=== PATIENT | male | born 1945 | race Caucasian/White ===

== ENCOUNTER 2017-12-11 07:24 | Inpatient (IN) | payer MEDICARE, OTHER ==
[2017-12-11] MEDS ORDERED: Sodium Chloride 0.9% 1,000 ML IV STA (07:36)
[2017-12-11] MEDS ORDERED: Ondansetron 4 MG/2 ML SDV IVPUSH ONE ×2 (07:36→11:51)
[2017-12-11] MEDS ORDERED: Sodium Chloride 0.9% 10 ML Syringe FLUSH PRN (07:36)
[2017-12-11] MEDS ORDERED: HYDROmorphone 0.5 MG/0.5 ML SYRINGE IVPUSH ONE ×3 (07:37→11:30)
[2017-12-11] MEDS ORDERED: HYDROmorphone 0.5 MG/0.5 ML SYRINGE ONE (07:44)
--- NOTE | 2017-12-11 08:26 | EDM.PDOC ---
ED HPI GENERAL MEDICAL PROBLEM - General Chief Complaint: Abdominal Pain Stated Complaint: POSS DEHYDRATION Time Seen by Provider: 12/11/17 07:30 Source of Information: Reports: Patient, Family History Limitations: Reports: No Limitations - History of Present Illness INITIAL COMMENTS - FREE TEXT/NARRATIVE: The patient presents with generalized abdominal pain, nausea and vomiting. This started yesterday. A couple days ago he was out mowing most of the day in the heat. He tried to hydrate but he is not sure if he kept up with fluid demands. He has no fever, chills, cough, chest pain, shortness of breath, diarrhea or dysuria. He did have a bowel movement today but it was just a small amount. He has a history of HTN and cholecystectomy. 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 Onset: Gradual Duration: Day(s): (Yesterday) Location: Reports: Abdomen Quality: Reports: Sharp Severity: Moderate Improves with: Reports: None Worsens with: Reports: None Associated Symptoms: Reports: Nausea/Vomiting. Denies: Chest Pain, Cough, Fever /Chills, Headaches, Shortness of Breath Abdominal Pain Score (Numeric/FACES): 7 - Related Data Allergies Allergy/AdvReac Type Severity Reaction Status Date / Time neomycin Allergy Swelling Verified 12/11/17 12:22 Penicillins Allergy Swelling Verified 12/11/17 12:22 Home Meds: Home Meds Aspirin [Ecotrin] 81 mg PO DAILY 12/11/17 [History] Enalapril [Vasotec] 20 mg PO DAILY 12/11/17 [History] Omeprazole 20 mg PO DAILY 12/11/17 [History] Sertraline [Zoloft] 100 mg PO DAILY 12/11/17 [History] Past Medical History Cardiovascular History: Reports: Hypertension Musculoskeletal History: Reports: Arthritis Psychiatric History: Reports: Depression - Past Surgical History HEENT Surgical History: Reports: Cataract Surgery GI Surgical History: Reports: Cholecystectomy, Hernia, Inguinal Neurological Surgical History: Reports: Discectomy Social & Family History - Tobacco Use Smoking Status *Q: Never Smoker Second Hand Smoke Exposure: No - Caffeine Use Caffeine Use: Reports: None - Recreational Drug Use Recreational Drug Use: No ED ROS GENERAL - Review of Systems Review Of Systems: See Below Constitutional: Reports: No Symptoms HEENT: Reports: No Symptoms Respiratory: Reports: No Symptoms Cardiovascular: Reports: No Symptoms Endocrine: Reports: No Symptoms GI/Abdominal: Reports: Abdominal Pain, Nausea, Vomiting : Reports: No Symptoms Musculoskeletal: Reports: No Symptoms ED EXAM, GI/ABD - Physical Exam Exam: See Below Exam Limited By: No Limitations General Appearance: Alert, No Apparent Distress Ears: Normal External Exam Nose: Normal Inspection Head: Atraumatic, Normocephalic Neck: Normal Inspection Respiratory/Chest: No Respiratory Distress, Lungs Clear, Normal Breath Sounds Cardiovascular: Regular Rate, Rhythm, No Edema, No Murmur GI/Abdominal Exam: Soft, No Organomegaly, No Mass, Tender (Moderate pain to the mid abdomen), Abnormal Bowel Sounds (diminshed) Back Exam: Normal Inspection Extremities: Normal Inspection Course - Vital Signs Last Recorded V/S: Last Vital Signs Temp 98.0 F 12/11/17 07:35 Pulse 88 12/11/17 07:35 Resp 18 12/11/17 07:35 BP 167/86 H 12/11/17 07:35 Pulse Ox 95 12/11/17 07:35 - Orders/Labs/Meds Orders: Active Orders 24 hr Category Date Time Status Communication Order [RC] STAT Care 12/11/17 12:16 Active EKG Documentation Completion [RC] ASDIRECTED Care 12/11/17 12:20 Active Patient to Empty Bladder [RC] ASDIRECTED Care 12/11/17 12:16 Active Peripheral IV Care [RC] . DIRECTED Care 12/11/17 07:36 Active Verify Patient Consent Obtain [RC] ASDIRECTED Care 12/11/17 12:17 Active Nothing Per Oral Diet [DIET] Diet 12/11/17 Lunch Active Abdomen Pelvis w Cont [CT] Stat Exams 12/11/17 08:23 Taken Abdomen Series w Chest 1V [CR] Stat Exams 12/11/17 07:36 Taken UA W/MICROSCOPIC [URIN] Stat Lab 12/11/17 10:45 Ordered Sodium Chloride 0.9% [Normal Saline] 1,000 ml Med 12/11/17 09:00 Active IV ASDIRECTED Sodium Chloride 0.9% [Normal Saline] 1,000 ml Med 12/11/17 12:30 Ordered IV ASDIRECTED Sodium Chloride 0.9% [Saline Flush] Med 12/11/17 07:36 Active 10 ml FLUSH ASDIRECTED PRN cefOXitin [Mefoxin in Dextrose,Iso-Osm 2 GM/50 ML] 2 gm Med 12/11/17 12:16 Ordered Premix Bag 1 bag IV ONETIME Antiembolic Hose [OM.PC] Routine Oth 12/11/17 12:16 Ordered ED Antiemetic Medication Reflex [OM.PC] Stat Oth 12/11/17 07:36 Ordered Peripheral IV Insertion Adult [OM.PC] Stat Oth 12/11/17 07:36 Ordered Schedule Procedure [COMM] Stat Oth 12/11/17 12:20 Ordered Schedule Procedure [COMM] Urgent Oth 12/11/17 12:16 Ordered Resuscitation Status Routine Resus Stat 12/11/17 12:16 Ordered EKG 12 Lead [EK] Stat Ther 12/11/17 12:20 Ordered Medication Orders Sodium Chloride (Normal Saline) 1,000 mls @ 150 mls/hr IV ASDIRECTED ESTRELLITA Last Admin: 12/11/17 09:05 Dose: 150 mls/hr Cefoxitin Sodium 2 gm/ Premix 50 mls @ 100 mls/hr IV ONETIME ONE Stop: 12/11/17 12:45 Sodium Chloride (Normal Saline) 1,000 mls @ 125 mls/hr IV ASDIRECTED [facility] Sodium Chloride (Saline Flush) 10 ml FLUSH ASDIRECTED PRN PRN Reason: Keep Vein Open Last Admin: 12/11/17 07:57 Dose: 10 ml Labs: Laboratory Tests 12/11/17 12/11/17 12/11/17 Range/Units 08:26 08:26 10:45 WBC 13.80 H (4.23-9.07) K/mm3 RBC 4.48 L (4.63-6.08) M/mm3 Hgb 13.3 L (13.7-17.5) gm/L Hct 40.0 L (40.1-51.0) % MCV 89.3 (79.0-92.2) fl MCH 29.7 (25.7-32.2) pg MCHC 33.3 (32.2-35.5) g/dl RDW Std Deviation 44.8 H (35.1-43.9) fL Plt Count 186 (163-337) K/mm3 MPV 9.6 (9.4-12.3) fl Neut % (Auto) 86.1 H (34.0-67.9) % Lymph % (Auto) 6.5 L (21.8-53.1) % [place] % (Auto) 7.1 (5.3-12.2) % Eos % (Auto) 0 L (0.8-7.0) Baso % (Auto) 0.0 L (0.1-1.2) % Neut # (Auto) 11.88 H (1.78-5.38) K/mm3 Lymph # (Auto) 0.90 L (1.32-3.57) K/mm3 [place] # (Auto) 0.98 H (0.30-0.82) K/mm3 Eos # (Auto) 0.00 L (0.04-0.54) K/mm3 Baso # (Auto) 0.00 L (0.01-0.08) K/mm3 Manual Slide Review Normal smear Sodium 137 (136-145) mEq/L Potassium 4.6 (3.5-5.1) mEq/L Chloride 106 (98-107) mEq/L Carbon Dioxide 21 (21-32) mEq/L Anion Gap 14.6 (5-15) BUN 32 H (7-18) mg/dL Creatinine 1.4 H (0.7-1.3) mg/dL Est Cr Clr Drug Dosing 43.94 mL/min Estimated GFR (MDRD) 50 (>60) mL/min BUN/Creatinine Ratio 22.9 H (14-18) Glucose 174 H (83-115) mg/dL Calcium 9.9 (8.5-10.1) mg/dL Total Bilirubin 0.7 (0.2-1.0) mg/dL AST 27 (15-37) U/L ALT 38 (16-63) U/L Alkaline Phosphatase 100 (46-116) U/L Total Protein 7.6 (6.4-8.2) g/dl Albumin 3.8 (3.4-5.0) g/dl Globulin 3.8 gm/dL Albumin/Globulin Ratio 1.0 (1-2) Lipase 90 (73-393) U/L Urine Color Yellow (Yellow) Urine Appearance Clear (Clear) Urine pH 5.5 (5.0-8.0) Ur Specific [place] 1.025 (1.005-1.030) Urine Protein Negative (Negative) Urine Glucose (UA) Negative (Negative) Urine Ketones Negative (Negative) Urine Occult Blood Negative (Negative) Urine Nitrite Negative (Negative) Urine Bilirubin Negative (Negative) Urine Urobilinogen 0.2 (0.2-1.0) Ur Leukocyte Esterase Negative (Negative) Urine RBC Not seen (0-5) /hpf Urine WBC Not seen (0-5) /hpf Ur Epithelial Cells 0-5 (0-5) /hpf Urine Bacteria Not seen (FEW) /hpf Urine Mucus Not seen (FEW) /hpf Meds: Medications Generic Name Dose Route Start Last Admin Trade Name Freq PRN Reason Stop Dose Admin Sodium Chloride 1,000 mls @ 150 mls/hr 12/11/17 09:00 12/11/17 09:05 Normal Saline IV 150 mls/hr ASDIRECTED ESTRELLITA Administration Cefoxitin Sodium 2 gm/ Premix 50 mls @ 100 mls/hr 12/11/17 12:16 IV 12/11/17 12:45 ONETIME ONE Sodium Chloride 1,000 mls @ 125 mls/hr 12/11/17 12:30 Normal Saline IV ASDIRECTED ESTRELLITA Sodium Chloride 10 ml 12/11/17 07:36 12/11/17 07:57 Saline Flush FLUSH 10 ml ASDIRECTED PRN Administration Keep Vein Open Discontinued Medications Generic Name Dose Route Start Last Admin Trade Name Freq PRN Reason Stop Dose Admin Diatrizoate Meglum/Diatrizoate Sod 90 ml 12/11/17 09:39 12/11/17 10:00 Gastrografin 37% PO 12/11/17 09:40 90 ml ONETIME ONE Administration Hydromorphone HCl 0.5 mg 12/11/17 07:37 12/11/17 07:57 Dilaudid IVPUSH 12/11/17 07:38 0.5 mg ONETIME ONE Administration Hydromorphone HCl Confirm 12/11/17 07:44 12/11/17 07:54 Dilaudid Administered 12/11/17 07:45 Not Given Dose 0.5 mg .ROUTE .STK-MED ONE Hydromorphone HCl 0.5 mg 12/11/17 08:53 12/11/17 09:06 Dilaudid IVPUSH 12/11/17 08:54 0.5 mg ONETIME ONE Administration Hydromorphone HCl 0.5 mg 12/11/17 11:30 12/11/17 11:40 Dilaudid IVPUSH 12/11/17 11:31 0.5 mg ONETIME ONE Administration Sodium Chloride 1,000 mls @ 1,000 mls/hr 12/11/17 07:36 12/11/17 07:56 Normal Saline IV 12/11/17 08:35 1,000 mls/hr .BOLUS STA Administration Iopamidol 100 ml 12/11/17 09:39 12/11/17 10:00 Isovue-370 (76%) IVPUSH 12/11/17 09:40 100 ml ONETIME ONE Administration Ondansetron HCl 4 mg 12/11/17 07:36 12/11/17 07:56 Zofran IVPUSH 12/11/17 07:37 4 mg ONETIME ONE Administration Ondansetron HCl Confirm 12/11/17 11:47 12/11/17 11:52 Zofran Administered 12/11/17 11:48 Not Given Dose 4 mg .ROUTE .STK-MED ONE Ondansetron HCl 4 mg 12/11/17 11:51 12/11/17 11:53 Zofran IVPUSH 12/11/17 11:52 4 mg ONETIME ONE Administration - Re-Assessments/Exams Free Text/Narrative Re-Assessment/Exam: 12/11/17 08:30 I ordered an IV NS 1L bolus, zofran 4mg IV, dilaudid 0.5mg IV, labs, UA and an X -ray of his chest and abdomen. The x-ray did shows a dilated loop of colon. I have ordered a CT of his abdomen and pelvis. 12/11/17 11:42 His WBC is elevated at 13.8. His Hgb is a little low at 13.3. His platelets are normal at 186. His creatinine is elevated at 1.4. His glucose is 174. His CT shows marked dilatation of bowel in the right upper quadrant measuring up to 6.5mc in diameter. Air-fluid levels are present within stool present within the bowel. Twisting of the surrounding mesentery and mesenteric vessels present is suspicious for a cecal volvulus. Colitis and early obstruction are also considerations. Bilateral inguinal hernias. He had more pain and nausea. I gave him a few doses of diluadid while he was here and now he is nauseated so I gave him more zofran 4mg IV. I called Dr Souza and he will come see the patient. 12/11/17 12:22 Dr Souza came to see the patient and he will take him to the OR. Departure - Departure Time of Disposition: 12:25 Disposition: Admitted As Inpatient 65 Condition: Serious Clinical Impression: Cecal volvulus - Discharge Information - My Orders Last 24 Hours: My Active Orders 12/11/17 07:36 Peripheral IV Care [RC] . DIRECTED Abdomen Series w Chest 1V [CR] Stat Sodium Chloride 0.9% [Saline Flush] 10 ml FLUSH ASDIRECTED PRN ED Antiemetic Medication Reflex [OM.PC] Stat Peripheral IV Insertion Adult [OM.PC] Stat 12/11/17 08:23 Abdomen Pelvis w Cont [CT] Stat 12/11/17 09:00 Sodium Chloride 0.9% [Normal Saline] 1,000 ml IV ASDIRECTED 12/11/17 10:45 UA W/MICROSCOPIC [URIN] Stat - Assessment/Plan Last 24 Hours: My Active Orders 12/11/17 07:36 Peripheral IV Care [RC] . DIRECTED Abdomen Series w Chest 1V [CR] Stat Sodium Chloride 0.9% [Saline Flush] 10 ml FLUSH ASDIRECTED PRN ED Antiemetic Medication Reflex [OM.PC] Stat Peripheral IV Insertion Adult [OM.PC] Stat 12/11/17 08:23 Abdomen Pelvis w Cont [CT] Stat 12/11/17 09:00 Sodium Chloride 0.9% [Normal Saline] 1,000 ml IV ASDIRECTED 12/11/17 10:45 UA W/MICROSCOPIC [URIN] Stat
[2017-12-11] MEDS ORDERED: Sodium Chloride 0.9% 1,000 ML IV SCH ×2 (09:00→12:30)
[2017-12-11] MEDS ORDERED: Diatrizoate Meglumine/Diatrizoate Sodium 37% 120 ML Bottle PO ONE (09:39)
[2017-12-11] MEDS ORDERED: Iopamidol 755 Mg/ML 100 ML Bottle IVPUSH ONE (09:39)
[2017-12-11] MEDS ORDERED: Ondansetron 4 MG/2 ML SDV ONE ×2 (11:47→12:37)
[2017-12-11] MEDS ORDERED: cefOXitin 2 GM in Premix Bag 1 BAG IV ONE (12:16)
--- NOTE | 2017-12-11 12:27 | PCM.HP ---
H&P History of Present Illness - General Date of Service: 12/11/17 Source of Information: Patient, Family, Provider - History of Present Illness Initial Comments - Free Text/Narative: 72-year-old male was in his usual state of health until yesterday morning when he became progressively distended that was associated with bloating. [place] and mostly this is a sitting position. The bloating and distention was then followed with crampy colicky abdominal pain which was mostly periumbilical and associated with nausea and anorexia. He had several episodes of clear emesis with no blood. This morning he had persistent discomfort which carried through the night in the periumbilical region and because of this lack of improvement he presented to the emergency room. He was seen by staff and abdominal plain films along with a CT of the abdomen was obtained and were remarkable for a bowel obstruction. I was asked to see him for surgery. He is status post a laparoscopic cholecystectomy. Abdominal Pain Score (Numeric/FACES): 7 - Related Data Allergies/Adverse Reactions: Allergies Allergy/AdvReac Type Severity Reaction Status Date / Time neomycin Allergy Swelling Verified 12/11/17 08:00 Penicillins Allergy Swelling Verified 12/11/17 08:00 Home Medications: Home Meds Aspirin [Ecotrin] 81 mg PO DAILY 12/11/17 [History] Enalapril [Vasotec] 20 mg PO DAILY 12/11/17 [History] Omeprazole 20 mg PO DAILY 12/11/17 [History] Sertraline [Zoloft] 100 mg PO DAILY 12/11/17 [History] Past Medical History Cardiovascular History: Reports: Hypertension Musculoskeletal History: Reports: Arthritis Psychiatric History: Reports: Depression - Past Surgical History HEENT Surgical History: Reports: Cataract Surgery GI Surgical History: Reports: Cholecystectomy, Hernia, Inguinal Neurological Surgical History: Reports: Discectomy Social & Family History - Tobacco Use Smoking Status *Q: Never Smoker Second Hand Smoke Exposure: No - Caffeine Use Caffeine Use: Reports: None - Recreational Drug Use Recreational Drug Use: No H&P Review of Systems - Review of Systems: Review Of Systems: ROS reveals no pertinent complaints other than HPI. Exam - Exam Exam: See Below - Vital Signs Vital Signs: Last Vital Signs Temp 36.7 C 12/11/17 07:35 Pulse 88 12/11/17 07:35 Resp 18 12/11/17 07:35 BP 167/86 H 12/11/17 07:35 Pulse Ox 95 12/11/17 07:35 Weight: 97.522 kg - Exam General: Alert, Oriented, Cooperative, Sedated HEENT: Conjunctiva Clear, EOMI, Hearing Intact Neck: Supple, Trachea Midline Lungs: Clear to Auscultation, Normal Respiratory Effort Cardiovascular: Regular Rate, Regular Rhythm, Normal S1, Normal S2 GI/Abdominal Exam: Tender (Mild periumbilical discomfort to very deep palpation with no hernia at the umbilical incision site), Abnormal Bowel Sounds (Quiet) (Male) Exam: Deferred Rectal (Males) Exam: Deferred Back Exam: Full Range of Motion Extremities: Non-Tender Skin: Warm, Dry, Intact Neuro Extensive - Mental Status: Alert, Oriented x3, Normal Mood/Affect, Normal Cognition Psychiatric: Alert, Normal Affect, Normal Mood - Patient Data Lab Results Last 24 hrs: Laboratory Results - last 24 hr 12/11/17 12/11/17 12/11/17 Range/Units 08:26 08:26 10:45 WBC 13.80 H (4.23-9.07) K/mm3 RBC 4.48 L (4.63-6.08) M/mm3 Hgb 13.3 L (13.7-17.5) gm/L Hct 40.0 L (40.1-51.0) % MCV 89.3 (79.0-92.2) fl MCH 29.7 (25.7-32.2) pg MCHC 33.3 (32.2-35.5) g/dl RDW Std Deviation 44.8 H (35.1-43.9) fL Plt Count 186 (163-337) K/mm3 MPV 9.6 (9.4-12.3) fl Neut % (Auto) 86.1 H (34.0-67.9) % Lymph % (Auto) 6.5 L (21.8-53.1) % [place] % (Auto) 7.1 (5.3-12.2) % Eos % (Auto) 0 L (0.8-7.0) Baso % (Auto) 0.0 L (0.1-1.2) % Neut # (Auto) 11.88 H (1.78-5.38) K/mm3 Lymph # (Auto) 0.90 L (1.32-3.57) K/mm3 [place] # (Auto) 0.98 H (0.30-0.82) K/mm3 Eos # (Auto) 0.00 L (0.04-0.54) K/mm3 Baso # (Auto) 0.00 L (0.01-0.08) K/mm3 Manual Slide Review Normal smear Sodium 137 (136-145) mEq/L Potassium 4.6 (3.5-5.1) mEq/L Chloride 106 (98-107) mEq/L Carbon Dioxide 21 (21-32) mEq/L Anion Gap 14.6 (5-15) BUN 32 H (7-18) mg/dL Creatinine 1.4 H (0.7-1.3) mg/dL Est Cr Clr Drug Dosing 43.94 mL/min Estimated GFR (MDRD) 50 (>60) mL/min BUN/Creatinine Ratio 22.9 H (14-18) Glucose 174 H (83-115) mg/dL Calcium 9.9 (8.5-10.1) mg/dL Total Bilirubin 0.7 (0.2-1.0) mg/dL AST 27 (15-37) U/L ALT 38 (16-63) U/L Alkaline Phosphatase 100 (46-116) U/L Total Protein 7.6 (6.4-8.2) g/dl Albumin 3.8 (3.4-5.0) g/dl Globulin 3.8 gm/dL Albumin/Globulin Ratio 1.0 (1-2) Lipase 90 (73-393) U/L Urine Color Yellow (Yellow) Urine Appearance Clear (Clear) Urine pH 5.5 (5.0-8.0) Ur Specific [place] 1.025 (1.005-1.030) Urine Protein Negative (Negative) Urine Glucose (UA) Negative (Negative) Urine Ketones Negative (Negative) Urine Occult Blood Negative (Negative) Urine Nitrite Negative (Negative) Urine Bilirubin Negative (Negative) Urine Urobilinogen 0.2 (0.2-1.0) Ur Leukocyte Esterase Negative (Negative) Urine RBC Not seen (0-5) /hpf Urine WBC Not seen (0-5) /hpf Ur Epithelial Cells 0-5 (0-5) /hpf Urine Bacteria Not seen (FEW) /hpf Urine Mucus Not seen (FEW) /hpf Result Diagrams: 12/11/17 08:26 12/11/17 08:26 - Problem List (1) Bowel obstruction SNOMED Code(s): 34707937 ICD Code: K56.609 - UNSP INTESTNL OBST, UNSP TO PARTIAL VERSUS COMPLETE OBST Status: Acute Priority: High Current Visit: Yes Qualifiers: Intestinal obstruction type: unspecified Intestinal obstruction extent: complete Qualified Code(s): K56.601 - Complete intestinal obstruction, unspecified as to cause Problem List Initiated/Reviewed/Updated: Yes Orders Last 24hrs: Active Orders 24 hr Category Date Time Status Communication Order [RC] STAT Care 12/11/17 12:16 Ordered EKG Documentation Completion [RC] ASDIRECTED Care 12/11/17 12:20 Ordered Patient to Empty Bladder [RC] ASDIRECTED Care 12/11/17 12:16 Ordered Peripheral IV Care [RC] . DIRECTED Care 12/11/17 07:36 Active Verify Patient Consent Obtain [RC] ASDIRECTED Care 12/11/17 12:17 Ordered Nothing Per Oral Diet [DIET] Diet 12/11/17 Lunch Ordered Abdomen Pelvis w Cont [CT] Stat Exams 12/11/17 08:23 Taken Abdomen Series w Chest 1V [CR] Stat Exams 12/11/17 07:36 Taken UA W/MICROSCOPIC [URIN] Stat Lab 12/11/17 10:45 Ordered Sodium Chloride 0.9% @ 125 MLS/HR (1000ml) Med 12/11/17 12:30 Ordered Sodium Chloride 0.9% [Normal Saline] 1,000 ml IV ASDIRECTED Sodium Chloride 0.9% [Normal Saline] 1,000 ml Med 12/11/17 09:00 Active IV ASDIRECTED Sodium Chloride 0.9% [Saline Flush] Med 12/11/17 07:36 Active 10 ml FLUSH ASDIRECTED PRN cefOXitin [Mefoxin in Dextrose,Iso-Osm 2 GM/50 ML] 2 gm Med 12/11/17 12:16 Ordered Premix Bag 1 bag IV ONETIME Antiembolic Hose [OM.PC] Routine Oth 12/11/17 12:16 Ordered ED Antiemetic Medication Reflex [OM.PC] Stat Oth 12/11/17 07:36 Ordered Peripheral IV Insertion Adult [OM.PC] Stat Oth 12/11/17 07:36 Ordered Schedule Procedure [COMM] Stat Oth 12/11/17 12:20 Ordered Schedule Procedure [COMM] Urgent Oth 12/11/17 12:16 Ordered Resuscitation Status Routine Resus Stat 12/11/17 12:16 Ordered EKG 12 Lead [EK] Stat Ther 12/11/17 12:20 Ordered Medication Orders Sodium Chloride (Normal Saline) 1,000 mls @ 150 mls/hr IV ASDIRECTED ESTRELLITA Last Admin: 12/11/17 09:05 Dose: 150 mls/hr Sodium Chloride (Saline Flush) 10 ml FLUSH ASDIRECTED PRN PRN Reason: Keep Vein Open Last Admin: 12/11/17 07:57 Dose: 10 ml Assessment/Plan Comment:: Mechanical bowel obstruction with a leukocytosis of 13,000. His abdominal tenderness and mesenteric twisting on CT scan are worrisome. He needs immediate exploratory laparotomy for management. Open laparotomy with possible large bowel and small bowel resection. 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 His was in attendance during the discussion and also agreed as well.
[2017-12-11] MEDS ORDERED: Rocuronium 50 MG/5 ML Vial ONE (12:37)
[2017-12-11] MEDS ORDERED: Lactated Ringers 2,000 ML ONE (12:37)
[2017-12-11] MEDS ORDERED: ceFAZolin 1 GM Vial ONE (12:37)
[2017-12-11] MEDS ORDERED: Lidocaine 1% with EPINEPHrine 1:100,000 20 ML MDV ONE (12:37)
[2017-12-11] MEDS ORDERED: Bupivacaine 0.5%/EPINEPHrine 1:200,000 50 ML MDV ONE (12:37)
[2017-12-11] MEDS ORDERED: Propofol 200 MG/20 ML SDV ONE (12:38)
[2017-12-11] MEDS ORDERED: Lidocaine 1% 4 ML ONE (12:38)
[2017-12-11] MEDS ORDERED: fentaNYL 250 MCG/5 ML SDV ONE (12:38)
[2017-12-11] MEDS ORDERED: Midazolam 1 MG/ML 2 ML SDV ONE (12:38)
[2017-12-11] MEDS ORDERED: Famotidine 20 MG/2 ML SDV ONE (13:02)
[2017-12-11] MEDS ORDERED: Dexamethasone 4 MG/ML 5 ML MDV ONE (13:35)
--- NOTE | 2017-12-11 14:02 | PCM.PREANE ---
Preanesthetic Assessment - Anesthesia/Transfusion/Family Hx Anesthesia History: Prior Anesthesia Without Reaction Family History of Anesthesia Reaction: No - Review of Systems General: Fatigue, Malaise, Appetite Pulmonary: No Symptoms Cardiovascular: No Symptoms, Other (PVCs noted on EKG at last apointment. ) Gastrointestinal: Abdominal Pain, Decreased Appetite, Nausea, Vomiting Neurological: Other (Pain in shoulders bilaterally. ) Other: Reports: None - Physical Assessment NPO Status Date: 12/10/17 NPO Status Time: 19:00 O2 Sat by Pulse Oximetry: 95 Respiratory Rate: 18 Vital Signs: Last Vital Signs Temp 36.7 C 12/11/17 07:35 Pulse 88 12/11/17 07:35 Resp 18 12/11/17 07:35 BP 167/86 H 12/11/17 07:35 Pulse Ox 95 12/11/17 07:35 Height: 1.7 m Weight: 97.522 kg ASA Class: 2E Mental Status: Alert & Oriented x3 Airway Class: Mallampati = 2 Dentition: Reports: [place](s), Broken Tooth/Teeth (Poor dentition. Lowers worn down, uppper front incisors chipped, discolored. ), Missing Tooth/Teeth Thyro-Mental Finger Breadths: 3 Mouth Opening Finger Breadths: 3 ROM/Head Extension: Full Lungs: Clear to Auscultation, Normal Respiratory Effort, Decreased Breath Sounds Cardiovascular: Regular Rate, Regular Rhythm - Lab Values: Laboratory Last Values WBC 13.80 K/mm3 (4.23-9.07) H 12/11/17 08:26 RBC 4.48 M/mm3 (4.63-6.08) L 12/11/17 08:26 Hgb 13.3 gm/L (13.7-17.5) L 12/11/17 08:26 Hct 40.0 % (40.1-51.0) L 12/11/17 08:26 MCV 89.3 fl (79.0-92.2) 12/11/17 08:26 MCH 29.7 pg (25.7-32.2) 12/11/17 08:26 MCHC 33.3 g/dl (32.2-35.5) 12/11/17 08:26 RDW Std Deviation 44.8 fL (35.1-43.9) H 12/11/17 08:26 Plt Count 186 K/mm3 (163-337) 12/11/17 08:26 MPV 9.6 fl (9.4-12.3) 12/11/17 08:26 Neut % (Auto) 86.1 % (34.0-67.9) H 12/11/17 08:26 Lymph % (Auto) 6.5 % (21.8-53.1) L 12/11/17 08:26 [place] % (Auto) 7.1 % (5.3-12.2) 12/11/17 08:26 Eos % (Auto) 0 (0.8-7.0) L 12/11/17 08:26 Baso % (Auto) 0.0 % (0.1-1.2) L 12/11/17 08: Neut # (Auto) 11.88 K/mm3 (1.78-5.38) H 12/11/17 08:26 Lymph # (Auto) 0.90 K/mm3 (1.32-3.57) L 12/11/17 08:26 [place] # (Auto) 0.98 K/mm3 (0.30-0.82) H 12/11/17 08:26 Eos # (Auto) 0.00 K/mm3 (0.04-0.54) L 12/11/17 08:26 Baso # (Auto) 0.00 K/mm3 (0.01-0.08) L 12/11/17 08:26 Manual Slide Review Normal smear 12/11/17 08:26 Sodium 137 mEq/L (136-145) 12/11/17 08:26 Potassium 4.6 mEq/L (3.5-5.1) 12/11/17 08:26 Chloride 106 mEq/L (98-107) 12/11/17 08:26 Carbon Dioxide 21 mEq/L (21-32) 12/11/17 08:26 Anion Gap 14.6 (5-15) 12/11/17 08:26 BUN 32 mg/dL (7-18) H 12/11/17 08:26 Creatinine 1.4 mg/dL (0.7-1.3) H 12/11/17 08:26 Est Cr Clr Drug Dosing 43.94 mL/min 12/11/17 08:26 Estimated GFR (MDRD) 50 mL/min (>60) 12/11/17 08:26 BUN/Creatinine Ratio 22.9 (14-18) H 12/11/17 08:26 Glucose 174 mg/dL (83-115) H 12/11/17 08:26 Calcium 9.9 mg/dL (8.5-10.1) 12/11/17 08:26 Total Bilirubin 0.7 mg/dL (0.2-1.0) 12/11/17 08:26 AST 27 U/L (15-37) 12/11/17 08:26 ALT 38 U/L (16-63) 12/11/17 08:26 Alkaline Phosphatase 100 U/L (46-116) 12/11/17 08:26 Total Protein 7.6 g/dl (6.4-8.2) 12/11/17 08:26 Albumin 3.8 g/dl (3.4-5.0) 12/11/17 08:26 Globulin 3.8 gm/dL 12/11/17 08:26 Albumin/Globulin Ratio 1.0 (1-2) 12/11/17 08:26 Lipase 90 U/L (73-393) 12/11/17 08:26 Urine Color Yellow (Yellow) 12/11/17 10:45 Urine Appearance Clear (Clear) 12/11/17 10:45 Urine pH 5.5 (5.0-8.0) 12/11/17 10:45 Ur Specific [place] 1.025 (1.005-1.030) 12/11/17 10:45 Urine Protein Negative (Negative) 12/11/17 10:45 Urine Glucose (UA) Negative (Negative) 12/11/17 10:45 Urine Ketones Negative (Negative) 12/11/17 10:45 Urine Occult Blood Negative (Negative) 12/11/17 10:45 Urine Nitrite Negative (Negative) 12/11/17 10:45 Urine Bilirubin Negative (Negative) 12/11/17 10:45 Urine Urobilinogen 0.2 (0.2-1.0) 12/11/17 10:45 Ur Leukocyte Esterase Negative (Negative) 12/11/17 10:45 Urine RBC Not seen /hpf (0-5) 12/11/17 10:45 Urine WBC Not seen /hpf (0-5) 12/11/17 10:45 Ur Epithelial Cells 0-5 /hpf (0-5) 12/11/17 10:45 Urine Bacteria Not seen /hpf (FEW) 12/11/17 10:45 Urine Mucus Not seen /hpf (FEW) 12/11/17 10:45 - Allergies Allergies/Adverse Reactions: Allergies Allergy/AdvReac Type Severity Reaction Status Date / Time neomycin Allergy Swelling Verified 12/11/17 12:22 Penicillins Allergy Swelling Verified 12/11/17 12:22 - Acknowledgements Anesthesia Type Planned: General Anesthesia Pt an Appropriate Candidate for the Planned Anesthesia: Yes Alternatives and Risks of Anesthesia Discussed w Pt/Guardian: Yes Pt/Guardian Understands and Agrees with Anesthesia Plan: Yes Additional Comments: Discussed placement of NG preoperatively with Dr. Souza and Omi. As this is a closed loop obstruction both wish to place OG intraoperatively. Educated patient on increased risk of aspiration. PreAnesthesia Questionnaire Cardiovascular History: Reports: Hypertension Musculoskeletal History: Reports: Arthritis Psychiatric History: Reports: Depression - Past Surgical History HEENT Surgical History: Reports: Cataract Surgery GI Surgical History: Reports: Cholecystectomy, Hernia, Inguinal Neurological Surgical History: Reports: Discectomy - SUBSTANCE USE Smoking Status *Q: Never Smoker Second Hand Smoke Exposure: No Recreational Drug Use History: No - HOME MEDS Home Medications: Home Meds Aspirin [Ecotrin] 81 mg PO DAILY 12/11/17 [History] Enalapril [Vasotec] 20 mg PO DAILY 12/11/17 [History] Omeprazole 20 mg PO DAILY 12/11/17 [History] Sertraline [Zoloft] 100 mg PO DAILY 12/11/17 [History] - CURRENT (IN HOUSE) MEDS Current Meds: Current Medications Sodium Chloride (Normal Saline) 1,000 mls @ 125 mls/hr IV ASDIRECTED ESTRELLITA Sodium Chloride (Saline Flush) 10 ml FLUSH ASDIRECTED PRN PRN Reason: Keep Vein Open Last Admin: 12/11/17 07:57 Dose: 10 ml Discontinued Medications Bupivacaine HCl/Epinephrine Bitart (Marcaine 0.5%/Epinephrine 1:200,000) Confirm Administered Dose 50 ml .ROUTE .STK-MED ONE Stop: 12/11/17 12:38 Cefazolin Sodium (Ancef) Confirm Administered Dose 2 gm .ROUTE .STK-MED ONE Stop: 12/11/17 12:38 Dexamethasone (Dexamethasone) Confirm Administered Dose 20 mg .ROUTE .STK-MED ONE Stop: 12/11/17 13:36 Diatrizoate Meglum/Diatrizoate Sod (Gastrografin 37%) 90 ml PO ONETIME ONE Stop: 12/11/17 09:40 Last Admin: 12/11/17 10:00 Dose: 90 ml Famotidine (Pepcid) Confirm Administered Dose 20 mg .ROUTE .STK-MED ONE Stop: 12/11/17 13:03 Fentanyl (Sublimaze) Confirm Administered Dose 250 mcg .ROUTE .STK-MED ONE Stop: 12/11/17 12:39 Hydromorphone HCl (Dilaudid) 0.5 mg IVPUSH ONETIME ONE Stop: 12/11/17 07:38 Last Admin: 12/11/17 07:57 Dose: 0.5 mg Hydromorphone HCl (Dilaudid) Confirm Administered Dose 0.5 mg .ROUTE .STK-MED ONE Stop: 12/11/17 07:45 Last Admin: 12/11/17 07:54 Dose: Not Given Hydromorphone HCl (Dilaudid) 0.5 mg IVPUSH ONETIME ONE Stop: 12/11/17 08:54 Last Admin: 12/11/17 09:06 Dose: 0.5 mg Hydromorphone HCl (Dilaudid) 0.5 mg IVPUSH ONETIME ONE Stop: 12/11/17 11:31 Last Admin: 12/11/17 11:40 Dose: 0.5 mg Sodium Chloride (Normal Saline) 1,000 mls @ 1,000 mls/hr IV .BOLUS STA Stop: 12/11/17 08:35 Last Admin: 12/11/17 07:56 Dose: 1,000 mls/hr Sodium Chloride (Normal Saline) 1,000 mls @ 150 mls/hr IV ASDIRECTED ESTRELLITA Last Admin: 12/11/17 09:05 Dose: 150 mls/hr Cefoxitin Sodium 2 gm/ Premix 50 mls @ 100 mls/hr IV ONETIME ONE Stop: 12/11/17 12:45 Last Admin: 12/11/17 12:29 Dose: 100 mls/hr Lactated Ringer's (Ringers, Lactated) Confirm Administered Dose 2,000 mls @ as directed .ROUTE .STK-MED ONE Stop: 12/11/17 12:38 Lidocaine HCl (Xylocaine-Mpf 1%) Confirm Administered Dose 4 mls @ as directed .ROUTE .K-MED ONE Stop: 12/11/17 12:39 Iopamidol (Isovue-370 (76%)) 100 ml IVPUSH ONETIME ONE Stop: 12/11/17 09:40 Last Admin: 12/11/17 10:00 Dose: 100 ml Lidocaine/Epinephrine (Xylocaine 1% With Epinephrine 1:100,000) Confirm Administered Dose 20 ml .ROUTE .STK-MED ONE Stop: 12/11/17 12:38 Midazolam HCl (Versed 1 Mg/Ml) Confirm Administered Dose 2 mg .[facility] Stop: 12/11/17 12:39 Ondansetron HCl (Zofran) 4 mg IVPUSH ONETIME ONE Stop: 12/11/17 07:37 Last Admin: 12/11/17 07:56 Dose: 4 mg Ondansetron HCl (Zofran) Confirm Administered Dose 4 mg .ROUTE .ST-MED ONE Stop: 12/11/17 11:48 Last Admin: 12/11/17 11:52 Dose: Not Given Ondansetron HCl (Zofran) 4 mg IVPUSH ONETIME ONE Stop: 12/11/17 11:52 Last Admin: 12/11/17 11:53 Dose: 4 mg Ondansetron HCl (Zofran) Confirm Administered Dose 4 mg .ROUTE .STK-MED ONE Stop: 12/11/17 12:38 Propofol (Diprivan 20 Ml) Confirm Administered Dose 400 mg .ROUTE .STK-MED ONE Stop: 12/11/17 12:39 Rocuronium [place] (Zemuron) Confirm Administered Dose 50 mg .ROUTE .STK-MED ONE Stop: 12/11/17 12:38
[2017-12-11] MEDS ORDERED: fentaNYL 100 MCG/2 ML SDV IVPUSH PRN ×2 (14:03→15:17)
[2017-12-11] MEDS ORDERED: diphenhydrAMINE 50 MG/ML SDV IVPUSH PRN (14:03)
[2017-12-11] MEDS ORDERED: Haloperidol Lactate 5 MG/ML SDV IVPUSH ONE (14:03)
[2017-12-11] MEDS ORDERED: Ketamine 500 mg/10 ML MDV ONE (14:19)
[2017-12-11] MEDS ORDERED: HYDROmorphone 0.5 MG/0.5 ML Syringe ONE (14:45)
[2017-12-11] MEDS ORDERED: Neostigmine Methylsulfate 1 MG/ML 5 ML Syringe ONE (14:46)
[2017-12-11] MEDS ORDERED: Phenylephrine/Normal Saline 100 MCG/ML 10 ML Syringe ONE (14:49)
[2017-12-11] MEDS ORDERED: ePHEDrine/Normal Saline 25 MG/5 ML Syringe ONE (14:49)
[2017-12-11] MEDS ORDERED: Ondansetron 4 MG/2 ML SDV IVPUSH PRN (15:17)
--- NOTE | 2017-12-11 15:17 | PCM.OPNOTE ---
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 A 10 blade was used to make a midline skin incision from the xiphoid down to just above the umbilicus. This incision was deepened sharply to the linea alba with spot cautery used for hemostasis in the subcutaneous fat. The linea alba was opened sharply with a 10 blade in the upper aspect. I then used Metzenbaums scissors to enter the abdomen through the peritoneum.. Cautery was used to extend the incision superiorly and inferiorly. On exploration with a Singh retractor I could easily see the dusky ischemic cecum in the right upper quadrant. Further exploration in the left lower quadrant revealed sigmoid diverticulosis containing multiple fecaliths. There was fluid in the pelvis. There was no pus and no fecal spillage. There were adhesions between the bowel and the postcholecystectomy bed. I bluntly and sharply mobilized the distal ileum and right colon along the white line to the hepatic flexure crossing the duodenum. I then fired a linear stapler across the mid right colon. I took the colonic mesentery down with [place] clamps using 3-0 Vicryl sutures to control the vessels. I then fired another straight stapler cutting across about 6 cm of residual terminal ileum. A [id number] stapled anastomosis was then performed with the linear stapler and closed with the TA 90 stapler. Silk was used to reinforce the crotch and sides of the anastomosis. I used a running 3-0 Vicryl to close the mesentery. The right upper quadrant and lower quadrant were irrigated out with warm saline solution. I then closed the abdomen with a running #1 PDS suture. The skin was closed with rock. He tolerated the procedure well and there were no procedural complications. The oral gastric tube was removed at the end of the case. The Stevens catheter was left in place to be removed tomorrow.
--- NOTE | 2017-12-11 15:22 | PCM.POSTAN ---
POST ANESTHESIA ASSESSMENT - MENTAL STATUS Mental Status: Alert Free Text/Narrative:: Opens eyes to name and falls back asleep. - VITAL SIGNS Pulse Rate: 76 SaO2: 96 Resp Rate: 15 Blood Pressure: 119/52 Temperature: 37.6 C - RESPIRATORY Respiratory Status: Respiratory Rate WNL, Airway Patent, O2 Saturation Stable, Supplemental Oxygen - CARDIOVASCULAR CV Status: Pulse Rate WNL, Blood Pressure Stable - GASTROINTESTINAL GI Status: No Symptoms - PAIN Pain Score: 0 - POST OP HYDRATION Hydration Status: Adequate & Stable
[2017-12-11] MEDS ORDERED: cefOXitin 2 GM in Premix Bag 1 BAG IV SCH (16:00)
[2017-12-11] MEDS ORDERED: cefOXitin 0 ML ONE (17:56)
[2017-12-11] MEDS: cefOXitin 2 GM in Premix Bag 1 BAG IV SCH (18:02)
[2017-12-11] MEDS: Sodium Chloride 0.9% 1,000 ML IV SCH ×2 (18:02→20:23)
[2017-12-11] MEDS: Famotidine 20 MG/2 ML SDV IVPUSH SCH (20:24)
[2017-12-12] MEDS: HYDROmorphone 0.5 MG/0.5 ML SYRINGE IV PRN ×2 (00:30→04:27)
[2017-12-12] MEDS: cefOXitin 2 GM in Premix Bag 1 BAG IV SCH ×5 (00:34→23:56)
[2017-12-12] MEDS: Sodium Chloride 0.9% 1,000 ML IV SCH ×2 (04:26→12:39)
[2017-12-12] MEDS ORDERED: Cyclobenzaprine 10 MG Tab PO PRN (08:14)
--- NOTE | 2017-12-12 08:19 | PCM48HPAN ---
Post Anesthesia Note - EVALUATION WITHIN 48HRS OF ANESTHETIC Vital Signs in Normal Range: Yes Patient Participated in Evaluation: Yes Respiratory Function Stable: Yes Airway Patent: Yes Cardiovascular Function Stable: Yes Hydration Status Stable: Yes Pain Control Satisfactory: Yes Nausea and Vomiting Control Satisfactory: Yes Mental Status Recovered: Yes
[2017-12-12] MEDS ORDERED: Acetaminophen/Codeine 300-30 MG Tab PO PRN (08:20)
[2017-12-12] MEDS: Famotidine 20 MG/2 ML SDV IVPUSH SCH ×2 (08:21→20:38)
--- NOTE | 2017-12-12 08:23 | PCM.SURGPN ---
- General Info Date of Service: 12/12/17 POD#: 1 Functional Status: Reports: Pain Controlled, Ambulating, Urinating, Incentive Spirometry - Review of Systems HEENT: Reports: Headaches Gastrointestinal: Reports: Other (Complain of muscle spasm) - Patient Data Vitals - Most Recent: Last Vital Signs Temp 36.7 C 12/12/17 04:30 Pulse 59 L 12/12/17 04:30 Resp 20 12/12/17 04:30 BP 144/67 H 12/12/17 04:30 Pulse Ox 99 12/12/17 04:30 Weight - Most Recent: 105.143 kg I&O - Last 24 Hours: Intake & Output 12/11/17 12/12/17 12/12/17 22:59 06:59 14:59 Intake Total 700 1353 Output Total 600 Balance 100 1353 Lab Results Last 24 Hrs: Laboratory Results - last 24 hr 12/11/17 12/11/17 12/11/17 Range/Units 08:26 08:26 10:45 WBC 13.80 H (4.23-9.07) K/mm3 RBC 4.48 L (4.63-6.08) M/mm3 Hgb 13.3 L (13.7-17.5) gm/L Hct 40.0 L (40.1-51.0) % MCV 89.3 (79.0-92.2) fl MCH 29.7 (25.7-32.2) pg MCHC 33.3 (32.2-35.5) g/dl RDW Std Deviation 44.8 H (35.1-43.9) fL Plt Count 186 (163-337) K/mm3 MPV 9.6 (9.4-12.3) fl Neut % (Auto) 86.1 H (34.0-67.9) % Lymph % (Auto) 6.5 L (21.8-53.1) % [place] % (Auto) 7.1 (5.3-12.2) % Eos % (Auto) 0 L (0.8-7.0) Baso % (Auto) 0.0 L (0.1-1.2) % Neut # (Auto) 11.88 H (1.78-5.38) K/mm3 Lymph # (Auto) 0.90 L (1.32-3.57) K/mm3 [place] # (Auto) 0.98 H (0.30-0.82) K/mm3 Eos # (Auto) 0.00 L (0.04-0.54) K/mm3 Baso # (Auto) 0.00 L (0.01-0.08) K/mm3 Manual Slide Review Normal smear Sodium 137 (136-145) mEq/L Potassium 4.6 (3.5-5.1) mEq/L Chloride 106 (98-107) mEq/L Carbon Dioxide 21 (21-32) mEq/L Anion Gap 14.6 (5-15) BUN 32 H (7-18) mg/dL Creatinine 1.4 H (0.7-1.3) mg/dL Est Cr Clr Drug Dosing 43.94 mL/min Estimated GFR (MDRD) 50 (>60) mL/min BUN/Creatinine Ratio 22.9 H (14-18) Glucose 174 H (83-115) mg/dL Calcium 9.9 (8.5-10.1) mg/dL Total Bilirubin 0.7 (0.2-1.0) mg/dL AST 27 (15-37) U/L ALT 38 (16-63) U/L Alkaline Phosphatase 100 (46-116) U/L Total Protein 7.6 (6.4-8.2) g/dl Albumin 3.8 (3.4-5.0) g/dl Globulin 3.8 gm/dL Albumin/Globulin Ratio 1.0 (1-2) Lipase 90 (73-393) U/L Urine Color Yellow (Yellow) Urine Appearance Clear (Clear) Urine pH 5.5 (5.0-8.0) Ur Specific [place] 1.025 (1.005-1.030) Urine Protein Negative (Negative) Urine Glucose (UA) Negative (Negative) Urine Ketones Negative (Negative) Urine Occult Blood Negative (Negative) Urine Nitrite Negative (Negative) Urine Bilirubin Negative (Negative) Urine Urobilinogen 0.2 (0.2-1.0) Ur Leukocyte Esterase Negative (Negative) Urine RBC Not seen (0-5) /hpf Urine WBC Not seen (0-5) /hpf Ur Epithelial Cells 0-5 (0-5) /hpf Urine Bacteria Not seen (FEW) /hpf Urine Mucus Not seen (FEW) /hpf Med Orders - Current: Current Medications Acetaminophen (Tylenol) 650 mg PO Q4H PRN PRN Reason: Headache Cyclobenzaprine HCl (Flexeril) 10 mg PO TID PRN PRN Reason: Spasms Enalapril Maleate (Vasotec) 10 mg PO BID [facility] Enoxaparin Sodium (Lovenox) 100 mg SUBCUT DAILY [facility] Famotidine (Pepcid) 20 mg IVPUSH BID [facility] Last Admin: 12/11/17 20:24 Dose: 20 mg Fentanyl (Sublimaze) 25 mcg IVPUSH Q1H PRN PRN Reason: Pain (severe 7-10) Stop: 12/12/17 15:21 Sodium Chloride (Normal Saline) 1,000 mls @ 80 mls/hr IV ASDIRECTED [facility] Last Admin: 12/12/17 04:26 Dose: 125 mls/hr Cefoxitin Sodium 2 gm/ Premix 50 mls @ 100 mls/hr IV Q6HR [facility] Last Admin: 12/12/17 06:42 Dose: 100 mls/hr Ondansetron HCl (Zofran) 4 mg IVPUSH Q6H PRN PRN Reason: Nausea/Vomiting Sodium Chloride (Saline Flush) 10 ml FLUSH ASDIRECTED PRN PRN Reason: Keep Vein Open Last Admin: 12/11/17 07:57 Dose: 10 ml Discontinued Medications Bupivacaine HCl/Epinephrine Bitart (Marcaine 0.5%/Epinephrine 1:200,000) Confirm Administered Dose 50 ml .ROUTE .STK-MED ONE Stop: 12/11/17 12:38 Cefazolin Sodium (Ancef) Confirm Administered Dose 2 gm .ROUTE .STK-MED ONE Stop: 12/11/17 12:38 Dexamethasone (Dexamethasone) Confirm Administered Dose 20 mg .ROUTE .STK-MED ONE Stop: 12/11/17 13:36 Diatrizoate Meglum/Diatrizoate Sod (Gastrografin 37%) 90 ml PO ONETIME ONE Stop: 12/11/17 09:40 Last Admin: 12/11/17 10:00 Dose: 90 ml Diphenhydramine HCl (Benadryl) 25 mg IVPUSH Q6H PRN PRN Reason: Pruritis Ephedrine Sulfate (Ephedrine In Ns) Confirm Administered Dose 25 mg .ROUTE .STK- MED ONE Stop: 12/11/17 14:50 Famotidine (Pepcid) Confirm Administered Dose 20 mg .ROUTE .STK-MED ONE Stop: 12/11/17 13:03 Fentanyl (Sublimaze) Confirm Administered Dose 250 mcg .ROUTE .STK-MED ONE Stop: 12/11/17 12:39 Fentanyl (Sublimaze) 50 mcg IVPUSH Q5M PRN PRN Reason: Pain Glycopyrrolate () Confirm Administered Dose 1 mg .ROUTE .STK-MED ONE Stop: 12/11/17 14:47 Haloperidol Lactate (Haldol) 1 mg IVPUSH ONETIME ONE Stop: 12/11/17 14:04 Last Admin: 12/11/17 19:21 Dose: Not Given Hydromorphone HCl (Dilaudid) 0.5 mg IVPUSH ONETIME ONE Stop: 12/11/17 07:38 Last Admin: 12/11/17 07:57 Dose: 0.5 mg Hydromorphone HCl (Dilaudid) Confirm Administered Dose 0.5 mg .ROUTE .STK-MED ONE Stop: 12/11/17 07:45 Last Admin: 12/11/17 07:54 Dose: Not Given Hydromorphone HCl (Dilaudid) 0.5 mg IVPUSH ONETIME ONE Stop: 12/11/17 08:54 Last Admin: 12/11/17 09:06 Dose: 0.5 mg Hydromorphone HCl (Dilaudid) 0.5 mg IVPUSH ONETIME ONE Stop: 12/11/17 11:31 Last Admin: 12/11/17 11:40 Dose: 0.5 mg Hydromorphone HCl (Dilaudid) 0.5 mg IV ASDIRECTED PRN PRN Reason: Severe Pain Last Admin: 12/12/17 04:27 Dose: 0.5 mg Hydromorphone HCl (Dilaudid) Confirm Administered Dose 0.5 mg .ROUTE .STK-MED ONE Stop: 12/11/17 14:46 Sodium Chloride (Normal Saline) 1,000 mls @ 1,000 mls/hr IV .BOLUS STA Stop: 12/11/17 08:35 Last Admin: 12/11/17 07:56 Dose: 1,000 mls/hr Sodium Chloride (Normal Saline) 1,000 mls @ 150 mls/hr IV ASDIRECTED [facility] Last Admin: 12/11/17 09:05 Dose: 150 mls/hr Cefoxitin Sodium 2 gm/ Premix 50 mls @ 100 mls/hr IV ONETIME ONE Stop: 12/11/17 12:45 Last Admin: 12/11/17 12:29 Dose: 100 mls/hr Sodium Chloride (Normal Saline) 1,000 mls @ 125 mls/hr IV ASDIRECTED [facility] Lactated Ringer's (Ringers, Lactated) Confirm Administered Dose 2,000 mls @ as directed .ROUTE .STK-MED ONE Stop: 12/11/17 12:38 Lidocaine HCl (Xylocaine-Mpf 1%) Confirm Administered Dose 4 mls @ as directed .ROUTE .STK-MED ONE Stop: 12/11/17 12:39 Cefoxitin Sodium (Mefoxin In Dextrose,Iso-Osm 2 Gm/50 Ml) Confirm Administered Dose 50 mls @ as directed .ROUTE .STK-MED ONE Stop: 12/11/17 17:57 Last Admin: 12/11/17 18:52 Dose: Not Given Iopamidol (Isovue-370 (76%)) 100 ml IVPUSH ONETIME ONE Stop: 12/11/17 09:40 Last Admin: 12/11/17 10:00 Dose: 100 ml Ketamine HCl (Ketalar) Confirm Administered Dose 500 mg .ROUTE .STK-MED ONE Stop: 12/11/17 14:20 Lidocaine/Epinephrine (Xylocaine 1% With Epinephrine 1:100,000) Confirm Administered Dose 20 ml .ROUTE .STK-MED ONE Stop: 12/11/17 12:38 Midazolam HCl (Versed 1 Mg/Ml) Confirm Administered Dose 2 mg .ROUTE .STK-MED ONE Stop: 12/11/17 12:39 Neostigmine Methylsulfate (Neostigmine) Confirm Administered Dose 5 mg .ROUTE .STK-MED ONE Stop: 12/11/17 14:47 Ondansetron HCl (Zofran) 4 mg IVPUSH ONETIME ONE Stop: 12/11/17 07:37 Last Admin: 12/11/17 07:56 Dose: 4 mg Ondansetron HCl (Zofran) Confirm Administered Dose 4 mg .ROUTE .STK-MED ONE Stop: 12/11/17 11:48 Last Admin: 12/11/17 11:52 Dose: Not Given Ondansetron HCl (Zofran) 4 mg IVPUSH ONETIME ONE Stop: 12/11/17 11:52 Last Admin: 12/11/17 11:53 Dose: 4 mg Ondansetron HCl (Zofran) Confirm Administered Dose 4 mg .ROUTE .STK-MED ONE Stop: 12/11/17 12:38 Phenylephrine HCl (Phenylephrine In Ns 100 Mcg/Ml) Confirm Administered Dose 1 mg .ROUTE .STK-MED ONE Stop: 12/11/17 14:50 Propofol (Diprivan 20 Ml) Confirm Administered Dose 400 mg .ROUTE .STK-MED ONE Stop: 12/11/17 12:39 Rocuronium [place] (Zemuron) Confirm Administered Dose 50 mg .ROUTE .STK-MED ONE Stop: 12/11/17 12:38 - Exam Wound/Incisions: Drainage (Dry drainage on dressing) GI/Abdominal Exam: Soft, Non-Tender - Problem List & Annotations (1) Bowel obstruction SNOMED Code(s): 11710316 Code(s): K56.609 - UNSP INTESTNL OBST, UNSP TO PARTIAL VERSUS COMPLETE OBST Status: Acute Priority: High Current Visit: Yes Qualifiers: Intestinal obstruction type: unspecified Intestinal obstruction extent: complete Qualified Code(s): K56.601 - Complete intestinal obstruction, unspecified as to cause - Problem List Review Problem List Initiated/Reviewed/Updated: Yes - My Orders Last 24 Hours: Active Orders 24 hr Category Date Time Status Patient Status [ADT] Routine ADT 12/11/17 15:17 Active Ambulate [RC] ASDIRECTED Care 12/11/17 15:17 Active Communication Order [RC] ROUTINE Care 12/12/17 08:18 Ordered Notify Provider [RC] ASDIRECTED Care 12/11/17 14:03 Active Oxygen Therapy [RC] PRN Care 12/11/17 15:17 Active Pulse Oximetry [RC] ASDIRECTED Care 12/11/17 14:02 Active RT Incentive Spirometry [RC] ASDIRECTED Care 12/11/17 15:17 Active Up ad Amanda [RC] ASDIRECTED Care 12/11/17 15:17 Active Up to Chair [RC] ASDIRECTED Care 12/11/17 15:17 Active Urinary Catheter Removal [RC] Per Unit Routine Care 12/12/17 01:00 Active Vital Signs [RC] Q4HR Care 12/11/17 15:17 Active Clear Liquid Diet [DIET] Diet 12/12/17 Lunch Ordered Abdomen Pelvis w Cont [CT] Stat Exams 12/11/17 08:23 Taken Abdomen Series w Chest 1V [CR] Stat Exams 12/11/17 07:36 Taken UA W/MICROSCOPIC [URIN] Stat Lab 12/11/17 10:45 Ordered Acetaminophen [Tylenol] Med 12/12/17 08:15 Ordered 650 mg PO Q4H PRN Acetaminophen/Codeine [Tylenol with Codeine No.3 300MG/ Med 12/12/17 08:20 Ordered 30MG] 2 tab PO Q4H PRN Cyclobenzaprine [Flexeril] Med 12/12/17 08:14 Ordered 10 mg PO TID PRN Enalapril [Vasotec] Med 12/12/17 09:00 Ordered 10 mg PO BID Enoxaparin [Lovenox] Med 12/12/17 09:00 Ordered 100 mg SUBCUT DAILY Famotidine [Pepcid] Med 12/11/17 21:00 Active 20 mg IVPUSH BID Ondansetron [Zofran] Med 12/11/17 15:17 Active 4 mg IVPUSH Q6H PRN Sodium Chloride 0.9% [Normal Saline] 1,000 ml Med 12/11/17 15:30 Active IV ASDIRECTED Sodium Chloride 0.9% [Saline Flush] Med 12/11/17 07:36 Active 10 ml FLUSH ASDIRECTED PRN cefOXitin [Mefoxin in Dextrose,Iso-Osm 2 GM/50 ML] 2 gm Med 12/11/17 18:00 Active Premix Bag 1 bag IV Q6HR fentaNYL [Sublimaze] Med 12/11/17 15:17 Active 25 mcg IVPUSH Q1H PRN Abdominal Binder [OM.PC] Per Unit Routine Oth 12/11/17 15:19 Ordered ED Antiemetic Medication Reflex [OM.PC] Stat Oth 12/11/17 07:36 Ordered Peripheral IV Insertion Adult [OM.PC] Stat Oth 12/11/17 07:36 Ordered Schedule Procedure [COMM] Stat Oth 12/11/17 12:20 Ordered Schedule Procedure [COMM] Urgent Oth 12/11/17 12:16 Ordered Resuscitation Status Routine Resus Stat 12/11/17 12:16 Ordered EKG 12 Lead [EK] Stat Ther 12/11/17 12:20 Ordered Medication Orders Acetaminophen (Tylenol) 650 mg PO Q4H PRN PRN Reason: Headache Cyclobenzaprine HCl (Flexeril) 10 mg PO TID PRN PRN Reason: Spasms Enalapril Maleate (Vasotec) 10 mg PO BID [facility] Enoxaparin Sodium (Lovenox) 100 mg SUBCUT DAILY [facility] Famotidine (Pepcid) 20 mg IVPUSH BID [facility] Last Admin: 12/11/17 20:24 Dose: 20 mg Fentanyl (Sublimaze) 25 mcg IVPUSH Q1H PRN PRN Reason: Pain (severe 7-10) Stop: 12/12/17 15:21 Sodium Chloride (Normal Saline) 1,000 mls @ 80 mls/hr IV ASDIRECTED [facility] Last Admin: 12/12/17 04:26 Dose: 125 mls/hr Infusion: 12/12/17 04:23 Dose: 125 mls/hr Admin: 12/11/17 20:23 Dose: 125 mls/hr Infusion: 12/11/17 20:23 Dose: 125 mls/hr Admin: 12/11/17 18:02 Dose: 125 mls/hr Cefoxitin Sodium 2 gm/ Premix 50 mls @ 100 mls/hr IV Q6HR [facility] Last Admin: 12/12/17 06:42 Dose: 100 mls/hr Admin: 12/12/17 00:34 Dose: 100 mls/hr Infusion: 12/11/17 18:32 Dose: 100 mls/hr Admin: 12/11/17 18:02 Dose: 100 mls/hr Ondansetron HCl (Zofran) 4 mg IVPUSH Q6H PRN PRN Reason: Nausea/Vomiting Sodium Chloride (Saline Flush) 10 ml FLUSH ASDIRECTED PRN PRN Reason: Keep Vein Open Last Admin: 12/11/17 07:57 Dose: 10 ml - Assessment Assessment (Free Text/Narrative):: Doing well. - Plan Plan (Free Text/Narrative):: Ambulation and slow clears.
[2017-12-12] MEDS ORDERED: Sertraline 50 MG Tab PO ONE (08:25)
[2017-12-12] MEDS: Enoxaparin 40 MG/0.4 ML Syringe SUBCUT SCH (10:20)
[2017-12-12] MEDS: Acetaminophen 325 MG Tab PO PRN ×2 (11:59→17:07)
[2017-12-12] MEDS ORDERED: Sodium Chloride 0.9% 1,000 ML IV SCH (19:15)
[2017-12-13] MEDS: Acetaminophen 325 MG Tab PO PRN ×2 (03:20→12:44)
[2017-12-13] MEDS: cefOXitin 2 GM in Premix Bag 1 BAG IV SCH (06:01)
[2017-12-13] MEDS ORDERED: Sodium Chloride 0.9% 10 ML Syringe FLUSH PRN (08:31)
[2017-12-13] MEDS: Famotidine 20 MG/2 ML SDV IVPUSH SCH (08:35)
--- NOTE | 2017-12-13 08:35 | CR ---
Abdominal series: Frontal view of the chest was obtained as well as supine and upright views of the abdomen. Comparison: No prior chest x-ray or abdominal x-ray. Gas-filled loop of bowel identified within the upper abdomen suspicious for cecal volvulus. Two surgical clips are seen from previous cholecystectomy. Prior lumbar spine surgery is noted. Calcifications are identified within the pelvis which are most likely due to phleboliths. Heart size appears slightly enlarged. Tortuous thoracic aorta is seen. Nothing acute is seen within the right or left lung. Impression: 1. 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 2. Other incidental findings. Diagnostic code #3
--- NOTE | 2017-12-13 08:35 | CT ---
CT abdomen and pelvis Technique: Multiple axial sections were obtained from above the dome of the diaphragm inferiorly through the pubic symphysis. Intravenous and oral contrast was utilized. Delayed images were also obtained through the pelvis. Findings: Dilated loop of bowel is seen within the upper abdomen showing an air-fluid level. Inflammatory change is seen around the base of this finding. Findings are felt compatible with cecal volvulus. There is adjacent twisting of the mesentery being seen at the base of this volvulus. Small amount of fluid is identified around the liver as well as minimal dependent fluid within the pelvis. No small bowel dilatation is seen. Visualized lung bases show nothing acute. Liver shows no focal parenchymal abnormality. Surgical clips are seen from prior cholecystectomy. Adrenal glands show no nodule. Kidneys show contrast enhancement without hydronephrosis or mass. Two cysts are identified within the right kidney. Largest cyst measures approximately 4.6 cm. Pancreas is within normal limits. Aorta shows atherosclerotic change without aneurysm. No retroperitoneal adenopathy or mesenteric abnormalities are seen. Small fat-containing umbilical hernia is seen. Diverticuli are seen within the sigmoid and descending colon. No evidence of diverticulitis. Delayed images show contrast within the distal ureters and within the bladder. Small fat-containing left inguinal hernia is noted. Bone window settings were reviewed which show scattered degenerative change within the spine. Spondylolisthesis is seen at L5-S1 with spondylolytic defects. Prior lumbar spine surgery is noted at the lumbosacral junction. Impression: 1. Findings compatible with cecal volvulus. Twisting of the mesentery is seen at the base of the volvulus. Inflammatory change is also noted at the base of the volvulus. 2. Small amount of fluid around the liver and within the pelvis likely relating to reactive fluid from the cecal volvulus. 3. Other incidental findings as noted above. Diagnostic code #5 I agree with preliminary report issued by Written ([facility] preliminary report dictated on 12/11/17, 12:17 PM Central Time)
[2017-12-13] MEDS: Enoxaparin 40 MG/0.4 ML Syringe SUBCUT SCH (08:36)
--- NOTE | 2017-12-13 08:36 | PCM.SURGPN ---
- General Info POD#: 2 Functional Status: Reports: Pain Controlled, Tolerating Diet, Ambulating, Urinating - Review of Systems General: Reports: Other (Requested resumption of Zoloft) Pulmonary: Reports: No Symptoms Cardiovascular: Reports: No Symptoms Gastrointestinal: Reports: Other (No flatus) - Patient Data Vitals - Most Recent: Last Vital Signs Temp 37.2 C 12/13/17 03:15 Pulse 57 L 12/13/17 03:15 Resp 16 12/13/17 03:15 BP 145/53 H 12/13/17 07:19 Pulse Ox 99 12/13/17 03:15 Weight - Most Recent: 105.233 kg I&O - Last 24 Hours: Intake & Output 12/12/17 12/13/17 12/13/17 22:59 06:59 14:59 Intake Total 1868 2008 Output Total 300 1850 Balance 1568 159 Med Orders - Current: Current Medications Acetaminophen (Tylenol) 650 mg PO Q4H PRN PRN Reason: Headache Last Admin: 12/13/17 03:20 Dose: 650 mg Acetaminophen/Codeine Phosphate (Tylenol With Codeine No.3 300mg/30mg) 2 tab PO Q4H PRN PRN Reason: Pain Cyclobenzaprine HCl (Flexeril) 10 mg PO TID PRN PRN Reason: Spasms Last Admin: 12/13/17 03:21 Dose: 10 mg Enalapril Maleate (Vasotec) 10 mg PO BID [facility] Last Admin: 12/12/17 20:38 Dose: 10 mg Enoxaparin Sodium (Lovenox) 40 mg SUBCUT DAILY [facility] Last Admin: 12/12/17 10:20 Dose: 40 mg Famotidine (Pepcid) 20 mg IVPUSH BID [facility] Last Admin: 12/12/17 20:38 Dose: 20 mg Ondansetron HCl (Zofran) 4 mg IVPUSH Q6H PRN PRN Reason: Nausea/Vomiting Sertraline HCl (Zoloft) 100 mg PO DAILY [facility] Sodium Chloride (Saline Flush) 10 ml FLUSH ASDIRECTED PRN PRN Reason: Keep Vein Open Last Admin: 12/11/17 07:57 Dose: 10 ml Sodium Chloride (Saline Flush) 10 ml FLUSH ASDIRECTED PRN PRN Reason: Keep Vein Open Discontinued Medications Bupivacaine HCl/Epinephrine Bitart (Marcaine 0.5%/Epinephrine 1:200,000) Confirm Administered Dose 50 ml .ROUTE .STK-MED ONE Stop: 12/11/17 12:38 Cefazolin Sodium (Ancef) Confirm Administered Dose 2 gm .ROUTE .STK-MED ONE Stop: 12/11/17 12:38 Dexamethasone (Dexamethasone) Confirm Administered Dose 20 mg .ROUTE .STK-MED ONE Stop: 12/11/17 13:36 Diatrizoate Meglum/Diatrizoate Sod (Gastrografin 37%) 90 ml PO ONETIME ONE Stop: 12/11/17 09:40 Last Admin: 12/11/17 10:00 Dose: 90 ml Diphenhydramine HCl (Benadryl) 25 mg IVPUSH Q6H PRN PRN Reason: Pruritis Ephedrine Sulfate (Ephedrine In Ns) Confirm Administered Dose 25 mg .ROUTE .STK- MED ONE Stop: 12/11/17 14:50 Famotidine (Pepcid) Confirm Administered Dose 20 mg .ROUTE .STK-MED ONE Stop: 12/11/17 13:03 Fentanyl (Sublimaze) Confirm Administered Dose 250 mcg .ROUTE .STK-MED ONE Stop: 12/11/17 12:39 Fentanyl (Sublimaze) 50 mcg IVPUSH Q5M PRN PRN Reason: Pain Fentanyl (Sublimaze) 25 mcg IVPUSH Q1H PRN PRN Reason: Pain (severe 7-10) Stop: 12/12/17 15:21 Last Admin: 12/12/17 08:21 Dose: 25 mcg Glycopyrrolate () Confirm Administered Dose 1 mg .ROUTE .STK-MED ONE Stop: 12/11/17 14:47 Haloperidol Lactate (Haldol) 1 mg IVPUSH ONETIME ONE Stop: 12/11/17 14:04 Last Admin: 12/11/17 19:21 Dose: Not Given Hydromorphone HCl (Dilaudid) 0.5 mg IVPUSH ONETIME ONE Stop: 12/11/17 07:38 Last Admin: 12/11/17 07:57 Dose: 0.5 mg Hydromorphone HCl (Dilaudid) Confirm Administered Dose 0.5 mg .ROUTE .STK-MED ONE Stop: 12/11/17 07:45 Last Admin: 12/11/17 07:54 Dose: Not Given Hydromorphone HCl (Dilaudid) 0.5 mg IVPUSH ONETIME ONE Stop: 12/11/17 08:54 Last Admin: 12/11/17 09:06 Dose: 0.5 mg Hydromorphone HCl (Dilaudid) 0.5 mg IVPUSH ONETIME ONE Stop: 12/11/17 11:31 Last Admin: 12/11/17 11:40 Dose: 0.5 mg Hydromorphone HCl (Dilaudid) 0.5 mg IV ASDIRECTED PRN PRN Reason: Severe Pain Last Admin: 12/12/17 04:27 Dose: 0.5 mg Hydromorphone HCl (Dilaudid) Confirm Administered Dose 0.5 mg .ROUTE .STK-MED ONE Stop: 12/11/17 14:46 Sodium Chloride (Normal Saline) 1,000 mls @ 1,000 mls/hr IV .BOLUS STA Stop: 12/11/17 08:35 Last Admin: 12/11/17 07:56 Dose: 1,000 mls/hr Sodium Chloride (Normal Saline) 1,000 mls @ 150 mls/hr IV ASDIRECTED [facility] Last Admin: 12/11/17 09:05 Dose: 150 mls/hr Cefoxitin Sodium 2 gm/ Premix 50 mls @ 100 mls/hr IV ONETIME ONE Stop: 12/11/17 12:45 Last Admin: 12/11/17 12:29 Dose: 100 mls/hr Sodium Chloride (Normal Saline) 1,000 mls @ 125 mls/hr IV ASDIRECTED [facility] Lactated Ringer's (Ringers, Lactated) Confirm Administered Dose 2,000 mls @ as directed .ROUTE .STK-MED ONE Stop: 12/11/17 12:38 Lidocaine HCl (Xylocaine-Mpf 1%) Confirm Administered Dose 4 mls @ as directed .ROUTE .STK-MED ONE Stop: 12/11/17 12:39 Sodium Chloride (Normal Saline) 1,000 mls @ 80 mls/hr IV ASDIRECTED [facility] Last Admin: 12/12/17 12:39 Dose: 125 mls/hr Cefoxitin Sodium 2 gm/ Premix 50 mls @ 100 mls/hr IV Q6HR [facility] Last Admin: 12/13/17 06:01 Dose: 100 mls/hr Cefoxitin Sodium (Mefoxin In Dextrose,Iso-Osm 2 Gm/50 Ml) Confirm Administered Dose 50 mls @ as directed .ROUTE .STK-MED ONE Stop: 12/11/17 17:57 Last Admin: 12/11/17 18:52 Dose: Not Given Sodium Chloride (Normal Saline) 1,000 mls @ 80 mls/hr IV ASDIRECTED [facility] Last Admin: 12/12/17 20:41 Dose: 80 mls/hr Iopamidol (Isovue-370 (76%)) 100 ml IVPUSH ONETIME ONE Stop: 12/11/17 09:40 Last Admin: 12/11/17 10:00 Dose: 100 ml Ketamine HCl (Ketalar) Confirm Administered Dose 500 mg .ROUTE .STK-MED ONE Stop: 12/11/17 14:20 Lidocaine/Epinephrine (Xylocaine 1% With Epinephrine 1:100,000) Confirm Administered Dose 20 ml .ROUTE .ST-MED ONE Stop: 12/11/17 12:38 Midazolam HCl (Versed 1 Mg/Ml) Confirm Administered Dose 2 mg .ROUTE .STK-MED ONE Stop: 12/11/17 12:39 Neostigmine Methylsulfate (Neostigmine) Confirm Administered Dose 5 mg .ROUTE .[facility]-MED ONE Stop: 12/11/17 14:47 Ondansetron HCl (Zofran) 4 mg IVPUSH ONETIME ONE Stop: 12/11/17 07:37 Last Admin: 12/11/17 07:56 Dose: 4 mg Ondansetron HCl (Zofran) Confirm Administered Dose 4 mg .ROUTE .ST-MED ONE Stop: 12/11/17 11:48 Last Admin: 12/11/17 11:52 Dose: Not Given Ondansetron HCl (Zofran) 4 mg IVPUSH ONETIME ONE Stop: 12/11/17 11:52 Last Admin: 12/11/17 11:53 Dose: 4 mg Ondansetron HCl (Zofran) Confirm Administered Dose 4 mg .ROUTE .STK-MED ONE Stop: 12/11/17 12:38 Phenylephrine HCl (Phenylephrine In Ns 100 Mcg/Ml) Confirm Administered Dose 1 mg .ROUTE .STK-MED ONE Stop: 12/11/17 14:50 Propofol (Diprivan 20 Ml) Confirm Administered Dose 400 mg .ROUTE .STK-MED ONE Stop: 12/11/17 12:39 Rocuronium [place] (Zemuron) Confirm Administered Dose 50 mg .ROUTE .STK-MED ONE Stop: 12/11/17 12:38 Sertraline HCl (Zoloft) 50 mg PO ONETIME ONE Stop: 12/12/17 08:26 Last Admin: 12/12/17 10:10 Dose: 50 mg - Exam Wound/Incisions: Dressing Dry and Intact General: Other (Comfortable) - Problem List & Annotations (1) Bowel obstruction SNOMED Code(s): 94947824 Code(s): K56.609 - UNSP INTESTNL OBST, UNSP TO PARTIAL VERSUS COMPLETE OBST Status: Acute Priority: High Current Visit: Yes Qualifiers: Intestinal obstruction type: unspecified Intestinal obstruction extent: complete Qualified Code(s): K56.601 - Complete intestinal obstruction, unspecified as to cause - Problem List Review Problem List Initiated/Reviewed/Updated: Yes - My Orders Last 24 Hours: Active Orders 24 hr Category Date Time Status Communication Order [RC] ASDIRECTED Care 12/12/17 16:37 Active Communication Order [RC] ROUTINE Care 12/12/17 08:18 Active May Shower [RC] ASDIRECTED Care 12/13/17 08:31 Active Urinary Catheter Insertion [Insert Urinary Catheter] [ Care 12/12/17 16:45 Ordered OM.PC] Q24H Clear Liquid Diet [DIET] Diet 12/12/17 Lunch Active Acetaminophen [Tylenol] Med 12/12/17 08:15 Active 650 mg PO Q4H PRN Acetaminophen/Codeine [Tylenol with Codeine No.3 300MG/ Med 12/12/17 08:20 Active 30MG] 2 tab PO Q4H PRN Cyclobenzaprine [Flexeril] Med 12/12/17 08:14 Active 10 mg PO TID PRN Enalapril [Vasotec] Med 12/12/17 09:00 Active 10 mg PO BID Enoxaparin [Lovenox] Med 12/12/17 09:00 Active 40 mg SUBCUT DAILY Sertraline [Zoloft] Med 12/13/17 09:00 Ordered 100 mg PO DAILY Sodium Chloride 0.9% [Saline Flush] Med 12/13/17 08:31 Ordered 10 ml FLUSH ASDIRECTED PRN Convert IV to Saline Lock [OM.PC] Routine Oth 12/13/17 08:31 Ordered Medication Orders Acetaminophen (Tylenol) 650 mg PO Q4H PRN PRN Reason: Headache Last Admin: 12/13/17 03:20 Dose: 650 mg Admin: 12/12/17 17:07 Dose: 650 mg Admin: 12/12/17 11:59 Dose: 650 mg Acetaminophen/Codeine Phosphate (Tylenol With Codeine No.3 300mg/30mg) 2 tab PO Q4H PRN PRN Reason: Pain Cyclobenzaprine HCl (Flexeril) 10 mg PO TID PRN PRN Reason: Spasms Last Admin: 12/13/17 03:21 Dose: 10 mg Enalapril Maleate (Vasotec) 10 mg PO BID [facility] Last Admin: 12/12/17 20:38 Dose: 10 mg Admin: 12/12/17 10:09 Dose: 10 mg Enoxaparin Sodium (Lovenox) 40 mg SUBCUT DAILY [facility] Last Admin: 12/12/17 10:20 Dose: 40 mg Famotidine (Pepcid) 20 mg IVPUSH BID [facility] Last Admin: 12/12/17 20:38 Dose: 20 mg Admin: 12/12/17 08:21 Dose: 20 mg Admin: 12/11/17 20:24 Dose: 20 mg Ondansetron HCl (Zofran) 4 mg IVPUSH Q6H PRN PRN Reason: Nausea/Vomiting Sertraline HCl (Zoloft) 100 mg PO DAILY [facility] Sodium Chloride (Saline Flush) 10 ml FLUSH ASDIRECTED PRN PRN Reason: Keep Vein Open Last Admin: 12/11/17 07:57 Dose: 10 ml Sodium Chloride (Saline Flush) 10 ml FLUSH ASDIRECTED PRN PRN Reason: Keep Vein Open - Assessment Assessment (Free Text/Narrative):: Tolerated clear liquids. Doing well. - Plan Plan (Free Text/Narrative):: Shower today and will DC IV.
[2017-12-13] MEDS: Sertraline 50 MG Tab PO SCH (08:39)
[2017-12-13] MEDS: Famotidine 20 MG Tab PO SCH (20:01)
--- NOTE | 2017-12-14 07:49 | PCM.SURGPN ---
- General Info Date of Service: 12/14/17 Functional Status: Reports: Pain Controlled, Tolerating Diet, Ambulating, Urinating - Review of Systems Gastrointestinal: Reports: No Symptoms, Flatus - Patient Data Vitals - Most Recent: Last Vital Signs Temp 37.1 C 12/14/17 04:00 Pulse 54 L 12/14/17 04:00 Resp 14 12/14/17 04:00 BP 149/89 H 12/14/17 04:00 Pulse Ox 97 12/14/17 04:00 Weight - Most Recent: 100.652 kg I&O - Last 24 Hours: Intake & Output 12/13/17 12/14/17 12/14/17 22:59 06:59 14:59 Intake Total 720 600 Output Total 350 Balance 370 600 Med Orders - Current: Current Medications Acetaminophen (Tylenol) 650 mg PO Q4H PRN PRN Reason: Headache Last Admin: 12/13/17 12:44 Dose: 650 mg Acetaminophen/Codeine Phosphate (Tylenol With Codeine No.3 300mg/30mg) 2 tab PO Q4H PRN PRN Reason: Pain Cyclobenzaprine HCl (Flexeril) 10 mg PO TID PRN PRN Reason: Spasms Last Admin: 12/13/17 03:21 Dose: 10 mg Enalapril Maleate (Vasotec) 10 mg PO BID [facility] Last Admin: 12/13/17 20:02 Dose: 10 mg Enoxaparin Sodium (Lovenox) 40 mg SUBCUT DAILY [facility] Last Admin: 12/13/17 08:36 Dose: 40 mg Famotidine (Pepcid) 20 mg PO BEDTIME [facility] Last Admin: 12/13/17 20:01 Dose: 20 mg Furosemide (Lasix) 10 mg IVPUSH NOW ONE Stop: 12/14/17 07:48 Ondansetron HCl (Zofran) 4 mg IVPUSH Q6H PRN PRN Reason: Nausea/Vomiting Sertraline HCl (Zoloft) 100 mg PO DAILY [facility] Last Admin: 12/13/17 08:39 Dose: 100 mg Sodium Chloride (Saline Flush) 10 ml FLUSH ASDIRECTED PRN PRN Reason: Keep Vein Open Discontinued Medications Bupivacaine HCl/Epinephrine Bitart (Marcaine 0.5%/Epinephrine 1:200,000) Confirm Administered Dose 50 ml .ROUTE .STK-MED ONE Stop: 12/11/17 12:38 Cefazolin Sodium (Ancef) Confirm Administered Dose 2 gm .ROUTE .STK-MED ONE Stop: 12/11/17 12:38 Dexamethasone (Dexamethasone) Confirm Administered Dose 20 mg .ROUTE .STK-MED ONE Stop: 12/11/17 13:36 Diatrizoate Meglum/Diatrizoate Sod (Gastrografin 37%) 90 ml PO ONETIME ONE Stop: 12/11/17 09:40 Last Admin: 12/11/17 10:00 Dose: 90 ml Diphenhydramine HCl (Benadryl) 25 mg IVPUSH Q6H PRN PRN Reason: Pruritis Ephedrine Sulfate (Ephedrine In Ns) Confirm Administered Dose 25 mg .ROUTE .STK- MED ONE Stop: 12/11/17 14:50 Famotidine (Pepcid) Confirm Administered Dose 20 mg .ROUTE .ST-MED ONE Stop: 12/11/17 13:03 Famotidine (Pepcid) 20 mg IVPUSH BID [facility] Last Admin: 12/13/17 08:35 Dose: 20 mg Fentanyl (Sublimaze) Confirm Administered Dose 250 mcg .ROUTE .ST-MED ONE Stop: 12/11/17 12:39 Fentanyl (Sublimaze) 50 mcg IVPUSH Q5M PRN PRN Reason: Pain Fentanyl (Sublimaze) 25 mcg IVPUSH Q1H PRN PRN Reason: Pain (severe 7-10) Stop: 12/12/17 15:21 Last Admin: 12/12/17 08:21 Dose: 25 mcg Glycopyrrolate () Confirm Administered Dose 1 mg .ROUTE .ST-MED ONE Stop: 12/11/17 14:47 Haloperidol Lactate (Haldol) 1 mg IVPUSH ONETIME ONE Stop: 12/11/17 14:04 Last Admin: 12/11/17 19:21 Dose: Not Given Hydromorphone HCl (Dilaudid) 0.5 mg IVPUSH ONETIME ONE Stop: 12/11/17 07:38 Last Admin: 12/11/17 07:57 Dose: 0.5 mg Hydromorphone HCl (Dilaudid) Confirm Administered Dose 0.5 mg .ROUTE .ST-MED ONE Stop: 12/11/17 07:45 Last Admin: 12/11/17 07:54 Dose: Not Given Hydromorphone HCl (Dilaudid) 0.5 mg IVPUSH ONETIME ONE Stop: 12/11/17 08:54 Last Admin: 12/11/17 09:06 Dose: 0.5 mg Hydromorphone HCl (Dilaudid) 0.5 mg IVPUSH ONETIME ONE Stop: 12/11/17 11:31 Last Admin: 12/11/17 11:40 Dose: 0.5 mg Hydromorphone HCl (Dilaudid) 0.5 mg IV ASDIRECTED PRN PRN Reason: Severe Pain Last Admin: 12/12/17 04:27 Dose: 0.5 mg Hydromorphone HCl (Dilaudid) Confirm Administered Dose 0.5 mg .ROUTE .STK-MED ONE Stop: 12/11/17 14:46 Sodium Chloride (Normal Saline) 1,000 mls @ 1,000 mls/hr IV .BOLUS STA Stop: 12/11/17 08:35 Last Admin: 12/11/17 07:56 Dose: 1,000 mls/hr Sodium Chloride (Normal Saline) 1,000 mls @ 150 mls/hr IV ASDIRECTED [facility] Last Admin: 12/11/17 09:05 Dose: 150 mls/hr Cefoxitin Sodium 2 gm/ Premix 50 mls @ 100 mls/hr IV ONETIME ONE Stop: 12/11/17 12:45 Last Admin: 12/11/17 12:29 Dose: 100 mls/hr Sodium Chloride (Normal Saline) 1,000 mls @ 125 mls/hr IV ASDIRECTED [facility] Lactated Ringer's (Ringers, Lactated) Confirm Administered Dose 2,000 mls @ as directed .ROUTE .STK-MED ONE Stop: 12/11/17 12:38 Lidocaine HCl (Xylocaine-Mpf 1%) Confirm Administered Dose 4 mls @ as directed .ROUTE .STK-MED ONE Stop: 12/11/17 12:39 Sodium Chloride (Normal Saline) 1,000 mls @ 80 mls/hr IV ASDIRECTED [facility] Last Admin: 12/12/17 12:39 Dose: 125 mls/hr Cefoxitin Sodium 2 gm/ Premix 50 mls @ 100 mls/hr IV Q6HR [facility] Last Admin: 12/13/17 06:01 Dose: 100 mls/hr Cefoxitin Sodium (Mefoxin In Dextrose,Iso-Osm 2 Gm/50 Ml) Confirm Administered Dose 50 mls @ as directed .ROUTE .STK-MED ONE Stop: 12/11/17 17:57 Last Admin: 12/11/17 18:52 Dose: Not Given Sodium Chloride (Normal Saline) 1,000 mls @ 80 mls/hr IV ASDIRECTED [facility] Last Admin: 12/12/17 20:41 Dose: 80 mls/hr Iopamidol (Isovue-370 (76%)) 100 ml IVPUSH ONETIME ONE Stop: 12/11/17 09:40 Last Admin: 12/11/17 10:00 Dose: 100 ml Ketamine HCl (Ketalar) Confirm Administered Dose 500 mg .ROUTE .STK-MED ONE Stop: 12/11/17 14:20 Lidocaine/Epinephrine (Xylocaine 1% With Epinephrine 1:100,000) Confirm Administered Dose 20 ml .ROUTE .STK-MED ONE Stop: 12/11/17 12:38 Midazolam HCl (Versed 1 Mg/Ml) Confirm Administered Dose 2 mg .ROUTE .STK-MED ONE Stop: 12/11/17 12:39 Neostigmine Methylsulfate (Neostigmine) Confirm Administered Dose 5 mg .ROUTE .STK-MED ONE Stop: 12/11/17 14:47 Ondansetron HCl (Zofran) 4 mg IVPUSH ONETIME ONE Stop: 12/11/17 07:37 Last Admin: 12/11/17 07:56 Dose: 4 mg Ondansetron HCl (Zofran) Confirm Administered Dose 4 mg .ROUTE .STK-MED ONE Stop: 12/11/17 11:48 Last Admin: 12/11/17 11:52 Dose: Not Given Ondansetron HCl (Zofran) 4 mg IVPUSH ONETIME ONE Stop: 12/11/17 11:52 Last Admin: 12/11/17 11:53 Dose: 4 mg Ondansetron HCl (Zofran) Confirm Administered Dose 4 mg .ROUTE .STK-MED ONE Stop: 12/11/17 12:38 Phenylephrine HCl (Phenylephrine In Ns 100 Mcg/Ml) Confirm Administered Dose 1 mg .ROUTE .STK-MED ONE Stop: 12/11/17 14:50 Propofol (Diprivan 20 Ml) Confirm Administered Dose 400 mg .ROUTE .STK-MED ONE Stop: 12/11/17 12:39 Rocuronium [place] (Zemuron) Confirm Administered Dose 50 mg .ROUTE .STK-MED ONE Stop: 12/11/17 12:38 Sertraline HCl (Zoloft) 50 mg PO ONETIME ONE Stop: 12/12/17 08:26 Last Admin: 12/12/17 10:10 Dose: 50 mg Sodium Chloride (Saline Flush) 10 ml FLUSH ASDIRECTED PRN PRN Reason: Keep Vein Open Last Admin: 12/11/17 07:57 Dose: 10 ml - Exam Wound/Incisions: Dressing Dry and Intact GI/Abdominal Exam: Soft, Non-Tender, Other ([place] in place) - Problem List & Annotations (1) Bowel obstruction SNOMED Code(s): 28349183 Code(s): K56.609 - UNSP INTESTNL OBST, UNSP TO PARTIAL VERSUS COMPLETE OBST Status: Acute Priority: High Current Visit: Yes Qualifiers: Intestinal obstruction type: unspecified Intestinal obstruction extent: complete Qualified Code(s): K56.601 - Complete intestinal obstruction, unspecified as to cause - Problem List Review Problem List Initiated/Reviewed/Updated: Yes - My Orders Last 24 Hours: Active Orders 24 hr Category Date Time Status May Shower [RC] ASDIRECTED Care 12/13/17 08:31 Active Regular Diet [DIET] Diet 12/14/17 Lunch Ordered BMP [BASIC METABOLIC PANEL,BMP] [CHEM] Routine Lab 12/14/17 07:47 Ordered CBC WITH AUTO DIFF [HEME] Routine Lab 12/14/17 07:47 Ordered Famotidine [Pepcid] Med 12/13/17 21:00 Active 20 mg PO BEDTIME Furosemide [Lasix] Med 12/14/17 07:47 Once 10 mg IVPUSH NOW ONE Sertraline [Zoloft] Med 12/13/17 09:00 Active 100 mg PO DAILY Sodium Chloride 0.9% [Saline Flush] Med 12/13/17 08:31 Active 10 ml FLUSH ASDIRECTED PRN Assess Discharge Needs [OM.PC] Routine Oth 12/14/17 07:48 Ordered Convert IV to Saline Lock [OM.PC] Routine Oth 12/13/17 08:31 Ordered Medication Orders Acetaminophen (Tylenol) 650 mg PO Q4H PRN PRN Reason: Headache Last Admin: 12/13/17 12:44 Dose: 650 mg Admin: 12/13/17 03:20 Dose: 650 mg Admin: 12/12/17 17:07 Dose: 650 mg Admin: 12/12/17 11:59 Dose: 650 mg Acetaminophen/Codeine Phosphate (Tylenol With Codeine No.3 300mg/30mg) 2 tab PO Q4H PRN PRN Reason: Pain Cyclobenzaprine HCl (Flexeril) 10 mg PO TID PRN PRN Reason: Spasms Last Admin: 12/13/17 03:21 Dose: 10 mg Enalapril Maleate (Vasotec) 10 mg PO BID [facility] Last Admin: 12/13/17 20:02 Dose: 10 mg Admin: 12/13/17 08:35 Dose: 10 mg Admin: 12/12/17 20:38 Dose: 10 mg Admin: 12/12/17 10:09 Dose: 10 mg Enoxaparin Sodium (Lovenox) 40 mg SUBCUT DAILY [facility] Last Admin: 12/13/17 08:36 Dose: 40 mg Admin: 12/12/17 10:20 Dose: 40 mg Famotidine (Pepcid) 20 mg PO BEDTIME [facility] Last Admin: 12/13/17 20:01 Dose: 20 mg Furosemide (Lasix) 10 mg IVPUSH NOW ONE Stop: 12/14/17 07:48 Ondansetron HCl (Zofran) 4 mg IVPUSH Q6H PRN PRN Reason: Nausea/Vomiting Sertraline HCl (Zoloft) 100 mg PO DAILY [facility] Last Admin: 12/13/17 08:39 Dose: 100 mg Sodium Chloride (Saline Flush) 10 ml FLUSH ASDIRECTED PRN PRN Reason: Keep Vein Open - Assessment Assessment (Free Text/Narrative):: Doing well. - Plan Plan (Free Text/Narrative):: Advance diet and plan discharge tomorrow.
[2017-12-14] MEDS ORDERED: Furosemide 20 MG/2 ML VIAL IVPUSH ONE (07:55)
[2017-12-14] MEDS: Enoxaparin 40 MG/0.4 ML Syringe SUBCUT SCH (08:08)
[2017-12-14] MEDS: Sertraline 50 MG Tab PO SCH (08:09)
[2017-12-14] MEDS ORDERED: Enalapril 5 MG Tab PO ONE (12:24)
[2017-12-14] MEDS: Famotidine 20 MG Tab PO SCH (20:54)
--- NOTE | 2017-12-15 07:50 | PCM.SURGPN ---
- General Info Date of Service: 12/15/17 Functional Status: Reports: Pain Controlled, Tolerating Diet, Ambulating, Urinating - Review of Systems General: Reports: No Symptoms Gastrointestinal: Reports: No Symptoms - Patient Data Vitals - Most Recent: Last Vital Signs Temp 36.9 C 12/15/17 05:31 Pulse 56 L 12/15/17 05:31 Resp 16 12/15/17 05:31 BP 133/77 12/15/17 05:31 Pulse Ox 97 12/15/17 05:31 Weight - Most Recent: 99.291 kg I&O - Last 24 Hours: Intake & Output 12/14/17 12/15/17 12/15/17 22:59 06:59 14:59 Intake Total 430 400 Balance 430 400 Lab Results Last 24 Hrs: Laboratory Results - last 24 hr 12/14/17 12/14/17 Range/Units 08:04 08:04 WBC 5.43 (4.23-9.07) K/mm3 RBC 3.21 L (4.63-6.08) M/mm3 Hgb 9.6 L (13.7-17.5) gm/L Hct 28.8 L (40.1-51.0) % MCV 89.7 (79.0-92.2) fl MCH 29.9 (25.7-32.2) pg MCHC 33.3 (32.2-35.5) g/dl RDW Std Deviation 42.1 (35.1-43.9) fL Plt Count 166 (163-337) K/mm3 MPV 9.4 (9.4-12.3) fl Neut % (Auto) 67.1 (34.0-67.9) % Lymph % (Auto) 20.1 L (21.8-53.1) % Yell % (Auto) 8.1 (5.3-12.2) % Eos % (Auto) 4.1 (0.8-7.0) Baso % (Auto) 0.2 (0.1-1.2) % Neut # (Auto) 3.65 (1.78-5.38) K/mm3 Lymph # (Auto) 1.09 L (1.32-3.57) K/mm3 Yell # (Auto) 0.44 (0.30-0.82) K/mm3 Eos # (Auto) 0.22 (0.04-0.54) K/mm3 Baso # (Auto) 0.01 (0.01-0.08) K/mm3 Sodium 137 (136-145) mEq/L Potassium 3.7 (3.5-5.1) mEq/L Chloride 106 (98-107) mEq/L Carbon Dioxide 24 (21-32) mEq/L Anion Gap 10.7 (5-15) BUN 17 (7-18) mg/dL Creatinine 1.0 (0.7-1.3) mg/dL Est Cr Clr Drug Dosing 61.51 mL/min Estimated GFR (MDRD) > 60 (>60) mL/min BUN/Creatinine Ratio 17.0 (14-18) Glucose 95 (83-115) mg/dL Calcium 9.6 (8.5-10.1) mg/dL Med Orders - Current: Current Medications Acetaminophen (Tylenol) 650 mg PO Q4H PRN PRN Reason: Headache Last Admin: 12/13/17 12:44 Dose: 650 mg Acetaminophen/Codeine Phosphate (Tylenol With Codeine No.3 300mg/30mg) 2 tab PO Q4H PRN PRN Reason: Pain Cyclobenzaprine HCl (Flexeril) 10 mg PO TID PRN PRN Reason: Spasms Last Admin: 12/13/17 03:21 Dose: 10 mg Enalapril Maleate (Vasotec) 10 mg PO BID [facility] Last Admin: 12/14/17 20:55 Dose: 10 mg Enoxaparin Sodium (Lovenox) 40 mg SUBCUT DAILY [facility] Last Admin: 12/14/17 08:08 Dose: 40 mg Famotidine (Pepcid) 20 mg PO BEDTIME [facility] Last Admin: 12/14/17 20:54 Dose: 20 mg Ondansetron HCl (Zofran) 4 mg IVPUSH Q6H PRN PRN Reason: Nausea/Vomiting Sertraline HCl (Zoloft) 100 mg PO DAILY [facility] Last Admin: 12/14/17 08:09 Dose: 100 mg Sodium Chloride (Saline Flush) 10 ml FLUSH ASDIRECTED PRN PRN Reason: Keep Vein Open Discontinued Medications Bupivacaine HCl/Epinephrine Bitart (Marcaine 0.5%/Epinephrine 1:200,000) Confirm Administered Dose 50 ml .ROUTE .STK-MED ONE Stop: 12/11/17 12:38 Cefazolin Sodium (Ancef) Confirm Administered Dose 2 gm .ROUTE .STK-MED ONE Stop: 12/11/17 12:38 Dexamethasone (Dexamethasone) Confirm Administered Dose 20 mg .ROUTE .STK-MED ONE Stop: 12/11/17 13:36 Diatrizoate Meglum/Diatrizoate Sod (Gastrografin 37%) 90 ml PO ONETIME ONE Stop: 12/11/17 09:40 Last Admin: 12/11/17 10:00 Dose: 90 ml Diphenhydramine HCl (Benadryl) 25 mg IVPUSH Q6H PRN PRN Reason: Pruritis Enalapril Maleate (Vasotec) 5 mg PO ONETIME ONE Stop: 12/14/17 12:25 Last Admin: 12/14/17 12:30 Dose: 5 mg Ephedrine Sulfate (Ephedrine In Ns) Confirm Administered Dose 25 mg .ROUTE .[facility]- MED ONE Stop: 12/11/17 14:50 Famotidine (Pepcid) Confirm Administered Dose 20 mg .ROUTE .[facility]-MED ONE Stop: 12/11/17 13:03 Famotidine (Pepcid) 20 mg IVPUSH BID [facility] Last Admin: 12/13/17 08:35 Dose: 20 mg Fentanyl (Sublimaze) Confirm Administered Dose 250 mcg .ROUTE .STK-MED ONE Stop: 12/11/17 12:39 Fentanyl (Sublimaze) 50 mcg IVPUSH Q5M PRN PRN Reason: Pain Fentanyl (Sublimaze) 25 mcg IVPUSH Q1H PRN PRN Reason: Pain (severe 7-10) Stop: 12/12/17 15:21 Last Admin: 12/12/17 08:21 Dose: 25 mcg Furosemide (Lasix) 10 mg IVPUSH NOW ONE Stop: 12/14/17 07:56 Last Admin: 12/14/17 08:08 Dose: 10 mg Glycopyrrolate () Confirm Administered Dose 1 mg .ROUTE .STK-MED ONE Stop: 12/11/17 14:47 Haloperidol Lactate (Haldol) 1 mg IVPUSH ONETIME ONE Stop: 12/11/17 14:04 Last Admin: 12/11/17 19:21 Dose: Not Given Hydromorphone HCl (Dilaudid) 0.5 mg IVPUSH ONETIME ONE Stop: 12/11/17 07:38 Last Admin: 12/11/17 07:57 Dose: 0.5 mg Hydromorphone HCl (Dilaudid) Confirm Administered Dose 0.5 mg .ROUTE .STK-MED ONE Stop: 12/11/17 07:45 Last Admin: 12/11/17 07:54 Dose: Not Given Hydromorphone HCl (Dilaudid) 0.5 mg IVPUSH ONETIME ONE Stop: 12/11/17 08:54 Last Admin: 12/11/17 09:06 Dose: 0.5 mg Hydromorphone HCl (Dilaudid) 0.5 mg IVPUSH ONETIME ONE Stop: 12/11/17 11:31 Last Admin: 12/11/17 11:40 Dose: 0.5 mg Hydromorphone HCl (Dilaudid) 0.5 mg IV ASDIRECTED PRN PRN Reason: Severe Pain Last Admin: 12/12/17 04:27 Dose: 0.5 mg Hydromorphone HCl (Dilaudid) Confirm Administered Dose 0.5 mg .ROUTE .STK-MED ONE Stop: 12/11/17 14:46 Sodium Chloride (Normal Saline) 1,000 mls @ 1,000 mls/hr IV .[facility]OL[facility] STA Stop: 12/11/17 08:35 Last Admin: 12/11/17 07:56 Dose: 1,000 mls/hr Sodium Chloride (Normal Saline) 1,000 mls @ 150 mls/hr IV ASDIRECTED [facility] Last Admin: 12/11/17 09:05 Dose: 150 mls/hr Cefoxitin Sodium 2 gm/ Premix 50 mls @ 100 mls/hr IV ONETIME ONE Stop: 12/11/17 12:45 Last Admin: 12/11/17 12:29 Dose: 100 mls/hr Sodium Chloride (Normal Saline) 1,000 mls @ 125 mls/hr IV ASDIRECTED [facility] Lactated Ringer's (Ringers, Lactated) Confirm Administered Dose 2,000 mls @ as directed .ROUTE .STK-MED ONE Stop: 12/11/17 12:38 Lidocaine HCl (Xylocaine-Mpf 1%) Confirm Administered Dose 4 mls @ as directed .ROUTE .STK-MED ONE Stop: 12/11/17 12:39 Sodium Chloride (Normal Saline) 1,000 mls @ 80 mls/hr IV ASDIRECTED [facility] Last Admin: 12/12/17 12:39 Dose: 125 mls/hr Cefoxitin Sodium 2 gm/ Premix 50 mls @ 100 mls/hr IV Q6HR [facility] Last Admin: 12/13/17 06:01 Dose: 100 mls/hr Cefoxitin Sodium (Mefoxin In Dextrose,Iso-Osm 2 Gm/50 Ml) Confirm Administered Dose 50 mls @ as directed .ROUTE .STK-MED ONE Stop: 12/11/17 17:57 Last Admin: 12/11/17 18:52 Dose: Not Given Sodium Chloride (Normal Saline) 1,000 mls @ 80 mls/hr IV ASDIRECTED [facility] Last Admin: 12/12/17 20:41 Dose: 80 mls/hr Iopamidol (Isovue-370 (76%)) 100 ml IVPUSH ONETIME ONE Stop: 12/11/17 09:40 Last Admin: 12/11/17 10:00 Dose: 100 ml Ketamine HCl (Ketalar) Confirm Administered Dose 500 mg .ROUTE .STK-MED ONE Stop: 12/11/17 14:20 Lidocaine/Epinephrine (Xylocaine 1% With Epinephrine 1:100,000) Confirm Administered Dose 20 ml .ROUTE .STK-MED ONE Stop: 12/11/17 12:38 Midazolam HCl (Versed 1 Mg/Ml) Confirm Administered Dose 2 mg .ROUTE .STK-MED ONE Stop: 12/11/17 12:39 Neostigmine Methylsulfate (Neostigmine) Confirm Administered Dose 5 mg .ROUTE .STK-MED ONE Stop: 12/11/17 14:47 Ondansetron HCl (Zofran) 4 mg IVPUSH ONETIME ONE Stop: 12/11/17 07:37 Last Admin: 12/11/17 07:56 Dose: 4 mg Ondansetron HCl (Zofran) Confirm Administered Dose 4 mg .ROUTE .STK-MED ONE Stop: 12/11/17 11:48 Last Admin: 12/11/17 11:52 Dose: Not Given Ondansetron HCl (Zofran) 4 mg IVPUSH ONETIME ONE Stop: 12/11/17 11:52 Last Admin: 12/11/17 11:53 Dose: 4 mg Ondansetron HCl (Zofran) Confirm Administered Dose 4 mg .ROUTE .STK-MED ONE Stop: 12/11/17 12:38 Phenylephrine HCl (Phenylephrine In Ns 100 Mcg/Ml) Confirm Administered Dose 1 mg .ROUTE .STK-MED ONE Stop: 12/11/17 14:50 Propofol (Diprivan 20 Ml) Confirm Administered Dose 400 mg .ROUTE .STK-MED ONE Stop: 12/11/17 12:39 Rocuronium [place] (Zemuron) Confirm Administered Dose 50 mg .ROUTE .STK-MED ONE Stop: 12/11/17 12:38 Sertraline HCl (Zoloft) 50 mg PO ONETIME ONE Stop: 12/12/17 08:26 Last Admin: 12/12/17 10:10 Dose: 50 mg Sodium Chloride (Saline Flush) 10 ml FLUSH ASDIRECTED PRN PRN Reason: Keep Vein Open Last Admin: 12/11/17 07:57 Dose: 10 ml - Exam Wound/Incisions: Healing Well - Problem List & Annotations (1) Bowel obstruction SNOMED Code(s): 20633913 Code(s): K56.609 - UNSP INTESTNL OBST, UNSP TO PARTIAL VERSUS COMPLETE OBST Status: Acute Priority: High Current Visit: Yes Qualifiers: Intestinal obstruction type: unspecified Intestinal obstruction extent: complete Qualified Code(s): K56.601 - Complete intestinal obstruction, unspecified as to cause - Problem List Review Problem List Initiated/Reviewed/Updated: Yes - My Orders Last 24 Hours: Active Orders 24 hr Category Date Time Status Communication Order [RC] ROUTINE Care 12/15/17 07:48 Ordered Ready for Discharge [RC] PER UNIT ROUTINE Care 12/15/17 07:48 Ordered Regular Diet [DIET] Diet 12/14/17 Lunch Active Assess Discharge Needs [OM.PC] Routine Oth 12/14/17 07:48 Ordered Medication Orders Acetaminophen (Tylenol) 650 mg PO Q4H PRN PRN Reason: Headache Last Admin: 12/13/17 12:44 Dose: 650 mg Admin: 12/13/17 03:20 Dose: 650 mg Admin: 12/12/17 17:07 Dose: 650 mg Admin: 12/12/17 11:59 Dose: 650 mg Acetaminophen/Codeine Phosphate (Tylenol With Codeine No.3 300mg/30mg) 2 tab PO Q4H PRN PRN Reason: Pain Cyclobenzaprine HCl (Flexeril) 10 mg PO TID PRN PRN Reason: Spasms Last Admin: 12/13/17 03:21 Dose: 10 mg Enalapril Maleate (Vasotec) 10 mg PO BID [facility] Last Admin: 12/14/17 20:55 Dose: 10 mg Admin: 12/14/17 08:09 Dose: 10 mg Admin: 12/13/17 20:02 Dose: 10 mg Admin: 12/13/17 08:35 Dose: 10 mg Admin: 12/12/17 20:38 Dose: 10 mg Admin: 12/12/17 10:09 Dose: 10 mg Enoxaparin Sodium (Lovenox) 40 mg SUBCUT DAILY [facility] Last Admin: 12/14/17 08:08 Dose: 40 mg Admin: 12/13/17 08:36 Dose: 40 mg Admin: 12/12/17 10:20 Dose: 40 mg Famotidine (Pepcid) 20 mg PO BEDTIME [facility] Last Admin: 12/14/17 20:54 Dose: 20 mg Admin: 12/13/17 20:01 Dose: 20 mg Ondansetron HCl (Zofran) 4 mg IVPUSH Q6H PRN PRN Reason: Nausea/Vomiting Sertraline HCl (Zoloft) 100 mg PO DAILY [facility] Last Admin: 12/14/17 08:09 Dose: 100 mg Admin: 12/13/17 08:39 Dose: 100 mg Sodium Chloride (Saline Flush) 10 ml FLUSH ASDIRECTED PRN PRN Reason: Keep Vein Open - Assessment Assessment (Free Text/Narrative):: Ready for discharge. - Plan Plan (Free Text/Narrative):: Discharge today after staple removal.
[2017-12-15] MEDS: Sertraline 50 MG Tab PO SCH ×2 (07:52→08:32)
[2017-12-15] MEDS: Enoxaparin 40 MG/0.4 ML Syringe SUBCUT SCH (08:31)
--- NOTE | 2017-12-16 15:15 | PCM.DCSUM1 ---
Discharge Summary - Hospital Course Free Text/Narrative:: Uneventful postoperative course. - Discharge Data Discharge Date: 12/15/17 Discharge Disposition: Home, Self-Care 01 Condition: Good - Discharge Diagnosis/Problem(s) (1) Bowel obstruction SNOMED Code(s): 06480906 ICD Code: K56.609 - UNSP INTESTNL OBST, UNSP TO PARTIAL VERSUS COMPLETE OBST Status: Acute Priority: High Qualifiers: Intestinal obstruction type: unspecified Intestinal obstruction extent: complete Qualified Code(s): K56.601 - Complete intestinal obstruction, unspecified as to cause - Patient Summary/Data Operative Procedure(s) Performed: Exploratory laparotomy with ileal side-to- side to distal right colonic stapled anastomosis Labs Pending at D/C: none Hospital Course: Uneventful. - Patient Instructions Diet: Usual Diet as Tolerated Activity: As Tolerated, Rest and Relax Today Driving: May Drive Today Showering/Bathing: May Shower Notify Provider of: Increased Pain - Discharge Plan Home Medications: Home Meds Aspirin [Ecotrin] 81 mg PO DAILY 12/11/17 [History] Enalapril [Vasotec] 20 mg PO DAILY 12/11/17 [History] Omeprazole 20 mg PO DAILY 12/11/17 [History] Sertraline [Zoloft] 100 mg PO DAILY 12/11/17 [History] Patient Handouts: Volvulus, Small Bowel Obstruction Referrals: PCP,Not In Area [Primary Care Provider] - (Please call and schedule a post- hospital follow-up appointment with your primary doctor with 7 to 10 days. ) - Discharge Summary/Plan Comment DC Time >30 min.: No Discharge Summary/Plan Comment: Follow up with primary care provider in [place]. - Patient Data Vitals - Most Recent: Last Vital Signs Temp 36.7 C 12/15/17 08:41 Pulse 55 L 12/15/17 08:41 Resp 22 H 12/15/17 08:41 BP 161/82 H 12/15/17 08:41 Pulse Ox 96 12/15/17 08:41 Weight - Most Recent: 99.291 kg Med Orders - Current: Current Medications Discontinued Medications Acetaminophen (Tylenol) 650 mg PO Q4H PRN PRN Reason: Headache Last Admin: 12/13/17 12:44 Dose: 650 mg Acetaminophen/Codeine Phosphate (Tylenol With Codeine No.3 300mg/30mg) 2 tab PO Q4H PRN PRN Reason: Pain Bupivacaine HCl/Epinephrine Bitart (Marcaine 0.5%/Epinephrine 1:200,000) Confirm Administered Dose 50 ml .ROUTE .STK-MED ONE Stop: 12/11/17 12:38 Cefazolin Sodium (Ancef) Confirm Administered Dose 2 gm .ROUTE .K-MED ONE Stop: 12/11/17 12:38 Cyclobenzaprine HCl (Flexeril) 10 mg PO TID PRN PRN Reason: Spasms Last Admin: 12/13/17 03:21 Dose: 10 mg Dexamethasone (Dexamethasone) Confirm Administered Dose 20 mg .ROUTE .STK-MED ONE Stop: 12/11/17 13:36 Diatrizoate Meglum/Diatrizoate Sod (Gastrografin 37%) 90 ml PO ONETIME ONE Stop: 12/11/17 09:40 Last Admin: 12/11/17 10:00 Dose: 90 ml Diphenhydramine HCl (Benadryl) 25 mg IVPUSH Q6H PRN PRN Reason: Pruritis Enalapril Maleate (Vasotec) 10 mg PO BID [facility] Last Admin: 12/15/17 08:32 Dose: Not Given Enalapril Maleate (Vasotec) 5 mg PO ONETIME ONE Stop: 12/14/17 12:25 Last Admin: 12/14/17 12:30 Dose: 5 mg Enoxaparin Sodium (Lovenox) 40 mg SUBCUT DAILY [facility] Last Admin: 12/15/17 08:31 Dose: Not Given Ephedrine Sulfate (Ephedrine In Ns) Confirm Administered Dose 25 mg .ROUTE .STK- MED ONE Stop: 12/11/17 14:50 Famotidine (Pepcid) Confirm Administered Dose 20 mg .ROUTE .STK-MED ONE Stop: 12/11/17 13:03 Famotidine (Pepcid) 20 mg IVPUSH BID [facility] Last Admin: 12/13/17 08:35 Dose: 20 mg Famotidine (Pepcid) 20 mg PO BEDTIME [facility] Last Admin: 12/14/17 20:54 Dose: 20 mg Fentanyl (Sublimaze) Confirm Administered Dose 250 mcg .ROUTE .STK-MED ONE Stop: 12/11/17 12:39 Fentanyl (Sublimaze) 50 mcg IVPUSH Q5M PRN PRN Reason: Pain Fentanyl (Sublimaze) 25 mcg IVPUSH Q1H PRN PRN Reason: Pain (severe 7-10) Stop: 12/12/17 15:21 Last Admin: 12/12/17 08:21 Dose: 25 mcg Furosemide (Lasix) 10 mg IVPUSH NOW ONE Stop: 12/14/17 07:56 Last Admin: 12/14/17 08:08 Dose: 10 mg Glycopyrrolate () Confirm Administered Dose 1 mg .ROUTE .STK-MED ONE Stop: 12/11/17 14:47 Haloperidol Lactate (Haldol) 1 mg IVPUSH ONETIME ONE Stop: 12/11/17 14:04 Last Admin: 12/11/17 19:21 Dose: Not Given Hydromorphone HCl (Dilaudid) 0.5 mg IVPUSH ONETIME ONE Stop: 12/11/17 07:38 Last Admin: 12/11/17 07:57 Dose: 0.5 mg Hydromorphone HCl (Dilaudid) Confirm Administered Dose 0.5 mg .ROUTE .STK-MED ONE Stop: 12/11/17 07:45 Last Admin: 12/11/17 07:54 Dose: Not Given Hydromorphone HCl (Dilaudid) 0.5 mg IVPUSH ONETIME ONE Stop: 12/11/17 08:54 Last Admin: 12/11/17 09:06 Dose: 0.5 mg Hydromorphone HCl (Dilaudid) 0.5 mg IVPUSH ONETIME ONE Stop: 12/11/17 11:31 Last Admin: 12/11/17 11:40 Dose: 0.5 mg Hydromorphone HCl (Dilaudid) 0.5 mg IV ASDIRECTED PRN PRN Reason: Severe Pain Last Admin: 12/12/17 04:27 Dose: 0.5 mg Hydromorphone HCl (Dilaudid) Confirm Administered Dose 0.5 mg .ROUTE .STK-MED ONE Stop: 12/11/17 14:46 Sodium Chloride (Normal Saline) 1,000 mls @ 1,000 mls/hr IV .BOLUS STA Stop: 12/11/17 08:35 Last Admin: 12/11/17 07:56 Dose: 1,000 mls/hr Sodium Chloride (Normal Saline) 1,000 mls @ 150 mls/hr IV ASDIRECTED [facility] Last Admin: 12/11/17 09:05 Dose: 150 mls/hr Cefoxitin Sodium 2 gm/ Premix 50 mls @ 100 mls/hr IV ONETIME ONE Stop: 12/11/17 12:45 Last Admin: 12/11/17 12:29 Dose: 100 mls/hr Sodium Chloride (Normal Saline) 1,000 mls @ 125 mls/hr IV ASDIRECTED [facility] Lactated Ringer's (Ringers, Lactated) Confirm Administered Dose 2,000 mls @ as directed .ROUTE .[facility]-MED ONE Stop: 12/11/17 12:38 Lidocaine HCl (Xylocaine-Mpf 1%) Confirm Administered Dose 4 mls @ as directed .ROUTE .[facility] ONE Stop: 12/11/17 12:39 Sodium Chloride (Normal Saline) 1,000 mls @ 80 mls/hr IV ASDIRECTED [facility] Last Admin: 12/12/17 12:39 Dose: 125 mls/hr Cefoxitin Sodium 2 gm/ Premix 50 mls @ 100 mls/hr IV Q6HR [facility] Last Admin: 12/13/17 06:01 Dose: 100 mls/hr Cefoxitin Sodium (Mefoxin In Dextrose,Iso-Osm 2 Gm/50 Ml) Confirm Administered Dose 50 mls @ as directed .ROUTE .[facility] ONE Stop: 12/11/17 17:57 Last Admin: 12/11/17 18:52 Dose: Not Given Sodium Chloride (Normal Saline) 1,000 mls @ 80 mls/hr IV ASDIRECTED [facility] Last Admin: 12/12/17 20:41 Dose: 80 mls/hr Iopamidol (Isovue-370 (76%)) 100 ml IVPUSH ONETIME ONE Stop: 12/11/17 09:40 Last Admin: 12/11/17 10:00 Dose: 100 ml Ketamine HCl (Ketalar) Confirm Administered Dose 500 mg .ROUTE .[facility]-MED ONE Stop: 12/11/17 14:20 Lidocaine/Epinephrine (Xylocaine 1% With Epinephrine 1:100,000) Confirm Administered Dose 20 ml .ROUTE .[facility] ONE Stop: 12/11/17 12:38 Midazolam HCl (Versed 1 Mg/Ml) Confirm Administered Dose 2 mg .ROUTE .STK-MED ONE Stop: 12/11/17 12:39 Neostigmine Methylsulfate (Neostigmine) Confirm Administered Dose 5 mg .ROUTE .STK-MED ONE Stop: 12/11/17 14:47 Ondansetron HCl (Zofran) 4 mg IVPUSH ONETIME ONE Stop: 12/11/17 07:37 Last Admin: 12/11/17 07:56 Dose: 4 mg Ondansetron HCl (Zofran) Confirm Administered Dose 4 mg .ROUTE .STK-MED ONE Stop: 12/11/17 11:48 Last Admin: 12/11/17 11:52 Dose: Not Given Ondansetron HCl (Zofran) 4 mg IVPUSH ONETIME ONE Stop: 12/11/17 11:52 Last Admin: 12/11/17 11:53 Dose: 4 mg Ondansetron HCl (Zofran) Confirm Administered Dose 4 mg .ROUTE .ST-MED ONE Stop: 12/11/17 12:38 Ondansetron HCl (Zofran) 4 mg IVPUSH Q6H PRN PRN Reason: Nausea/Vomiting Phenylephrine HCl (Phenylephrine In Ns 100 Mcg/Ml) Confirm Administered Dose 1 mg .ROUTE .STK-MED ONE Stop: 12/11/17 14:50 Propofol (Diprivan 20 Ml) Confirm Administered Dose 400 mg .ROUTE .STK-MED ONE Stop: 12/11/17 12:39 Rocuronium [place] (Zemuron) Confirm Administered Dose 50 mg .ROUTE .STK-MED ONE Stop: 12/11/17 12:38 Sertraline HCl (Zoloft) 50 mg PO ONETIME ONE Stop: 12/12/17 08:26 Last Admin: 12/12/17 10:10 Dose: 50 mg Sertraline HCl (Zoloft) 100 mg PO DAILY [facility] Last Admin: 12/15/17 08:32 Dose: Not Given Sodium Chloride (Saline Flush) 10 ml FLUSH ASDIRECTED PRN PRN Reason: Keep Vein Open Last Admin: 12/11/17 07:57 Dose: 10 ml Sodium Chloride (Saline Flush) 10 ml FLUSH ASDIRECTED PRN PRN Reason: Keep Vein Open
== END 2017-12-15 10:09 | disposition home or self-care (01) | DRG 393 ==
LOC: JD.ED 07:24 → JD.SDS 12:14 → JD.MS 15:17
PROVIDERS: ADMIT Surgery; ATTEND Surgery
DX: K55.9 Vascular disorder of intestine, unspecified (principal); K40.90 Unilateral inguinal hernia, without obstruction or gangrene, not specified as recurrent; K56.2 Volvulus; I10 Essential (primary) hypertension; K56.41 Fecal impaction; M19.90 Unspecified osteoarthritis, unspecified site; F32.9 Major depressive disorder, single episode, unspecified; K57.30 Diverticulosis of large intestine without perforation or abscess without bleeding; K40.20 Bilateral inguinal hernia, without obstruction or gangrene, not specified as recurrent; Z90.49 Acquired absence of other specified parts of digestive tract; Z88.0 Allergy status to penicillin; Z88.3 Allergy status to other anti-infective agents; Z79.899 Other long term (current) drug therapy; Z79.82 Long term (current) use of aspirin
CPT/HCPCS: 36415; 44140; 74022; 74177; 80053; 81001; 83690; 85025; 88307; 93005; 96361; 96365; 96375; 96376; 99285; J0690; J0694; J1100; J1170 ×4; J2001; J2250; J2405 ×3; J2710; J3010; J7040 ×2; J7050 ×2; J7120; Q9963; Q9967; 00840; 51701; 51798; 80048; A9270-GY; J1650; J2704